=== PATIENT | female | born 1975 | race Caucasian/White ===

== ENCOUNTER 2019-08-14 22:04 | Emergency (ER) | payer MEDICARE, OTHER, SELFPAY ==
[2019-08-14 22:10] VITALS: BP 138/85; PULSE 103; RESP 20; TEMP 37.2; O2SAT 99
--- NOTE | 2019-08-14 22:18 | ED.ABDPAIN ---
HPI - Abdominal Pain General Chief Complaint: Abdominal Pain Stated Complaint: abd pain Time Seen by Provider: 08/14/19 22:16 Source: patient and RN notes reviewed Mode of arrival: ambulatory Limitations: no limitations History of Present Illness HPI narrative: A 43 y/o female presents to the ED with severe epigastric ABD pain since yesterday. She states that the pain began yesterday shortly after she ate some raw vegetables. She reports that today she began to have ABD distention, nausea, dark bilious vomit, and generalized weakness. She notes that the pain radiates into her back and is aggravated when she eats or drinks. She denies any fevers, chills, diarrhea, dysuria, urinary frequency, or urinary retention. MD elicited complaint: abdominal pain Pertinent past history: other (gastric bypass) Onset (ago): hour(s) (yesterday) Location: epigastric Severity: severe Radiation: back Exacerbating factors: eating (or drinking) Associated symptoms: nausea, vomiting (dark bilious) and other (ABD distention and generalized weakness) Related Data Allergies Allergy/AdvReac Type Severity Reaction Status Date / Time No Known Allergies Allergy Verified 08/14/19 22:13 Review of Systems Review of Systems: All systems reviewed & are unremarkable except as noted in HPI and below Constitutional: Constitutional: Denies chills, Denies fever(s) and Reports weakness (generalized) Gastrointestinal: Gastrointestinal: Reports abdominal pain (Epigastric), Denies diarrhea, Reports nausea, Reports vomiting (dark bilious) and Reports other (ABD distention) Genitourinary: Genitourinary: Denies nocturia, Denies dysuria and Denies other (urinary retention) [facility] Past Medical History Medical History Anemia Anxiety DDD (degenerative disc disease) Depression GERD (gastroesophageal reflux disease) History of kidney stones Hx of seizure disorder Surgical History Surgical History History of cholecystectomy History of dilation and curettage History of gastric bypass History of spinal surgery x4. Hx of tubal ligation Previous section x4. Family History Family History Mother Hypertension Social History Social History Smoking status: Never smoker Alcohol intake: never Gender identity (if verbalized by the patient): Female Exam Const: General: healthy appearing and no acute distress Nutritional Appearance: well nourished HENMT: Mouth: Yes lip normal and Yes moist mucous membranes Eyes: Conjunctivae: conjunctivae normal Pupils: Equal, round and reactive pupils present Resp: Effort & Inspection: normal respiratory effort Auscultation: clear to auscultation bilaterally Cardio: Rate: regular rate Rhythm: regular rhythm Heart sounds: no murmurs GI: GI Palp: Yes Soft to palpation and Yes Tenderness to palpation present (GI) (Epigastric) Auscultation: normal bowel sounds Back/Spine/Pelvis: Other: Full ROM. Skin: General skin exam: normal color, dry skin and other (warm) Neuro: General: patient oriented x3 (alert) Speech: normal speech Extrem: General: full ROM Psych: Mental Status: mental status grossly normal Affect: normal affect Course Vital Signs Vital signs: Vital Signs Temperature 37.2 C 08/14/19 22:10 Pulse Rate 103 H 08/14/19 22:10 Respiratory Rate 20 08/14/19 22:10 Blood Pressure 138/85 08/14/19 22:10 Pulse Oximetry 99 08/14/19 22:10 Temperature 36.8 C 08/15/19 01:09 Pulse Rate 89 08/15/19 01:09 Respiratory Rate 13 08/15/19 01:09 Blood Pressure 140/76 08/15/19 01:09 Pulse Oximetry 98 08/15/19 01:09 MDM - Abdominal Pain Lab Data Result diagrams: 08/14/19 22:41 08/14/19 22:41 Labs: Lab Results 08/14/19 08/14/19 08/14/19 Range/Units 22:41 22:41 23:
[2019-08-14] MEDS: SODIUM CHLORIDE 0.9% IV 1,000 ML 999 ML IV CONT (22:46)
[2019-08-14 22:47] LABS: Basophils Percent Auto 0.2 % (0.2-1.2); Hematocrit 36.5 % (37.0-47.0); Hemoglobin 10.6 g/dL (12.0-15.0); Immature Granulocyte Absolute 0.03 K/mm3 (0.00-0.031); Immature Granulocyte Percent A 0.3 % (0-0.5); Lymphocytes Absolute Auto 0.55 K/mm3 (0.9-3.2); Lymphocytes Percent Auto 5.3 % (18.3-44.2); Mean Corpuscular Hemoglobin 24.8 pg (26-34); Mean Corpuscular Volume 85.3 fl (80-100); Mean Platelet Volume 9.6 fl (7.4-10.4); Monocytes Absolute Auto 0.3 K/mm3 (0.1-0.6); Monocytes Percent Auto 2.4 % (2.6-8.5); Neutrophils Absolute Auto 9.4 K/mm3 (1.3-6.7); Neutrophils Percent Auto 91.8 % (45.5-73.1); Platelet Count Result 343 k/mm3 (150-375); Red Blood Count 4.28 M/mm3 (4.2-5.4); Red Cell Distribution Width 14.6 % (11.5-14.5); White Blood Count 10.3 K/mm3 (4.5-10.0)
[2019-08-14] MEDS: DICYCLOMINE HCL INJ 20 MG/2 ML VIAL IM (22:47)
[2019-08-14] MEDS: PANTOPRAZOLE SODIUM IV 40 MG VIAL IV PUSH (22:47)
[2019-08-14] MEDS: ONDANSETRON INJ 4 MG/2 ML VIAL IV PUSH (22:47)
[2019-08-14 22:53] LABS: Hypochromasia 1+ (NORMAL); Platelet Estimate Adequate (Adequate)
[2019-08-14 22:59] LABS: Alanine Aminotransferase 25 U/L (4-35); Albumin Level 4.8 g/dL (3.5-5.1); Alkaline Phosphatase 107 U/L (38-126); Aspartate Amino Transferase 34 U/L (14-36); Bilirubin,Total 0.4 mg/dL (0.2-1.3); Blood Urea Nitrogen 17 mg/dL (7-17); Calcium 9.2 mg/dL (8.4-10.2); Carbon Dioxide 20 mmol/L (22-30); Chloride 105 mmol/L (98-107); Estimated Glomerular Filt Rate > 60; Glucose 122 mg/dL (65-105); Lipase 113 U/L (23-300); Potassium 3.7 mmol/L (3.4-5.0); Sodium 137 mmol/L (137-145)
[2019-08-14 23:32] LABS: Add Urine Microscopic? YES; Appearance Urine Clear (Clear); Bacteria Urine Trace /hpf; Bilirubin Urine Negative (Negative); Blood Urine Negative (Negative); Color Urine Yellow (Yellow); Glucose Urine UA Negative (Negative); Ketones Urine 2+ mg/dL (Negative); Leukocyte Esterase Ur Negative LEU/UL (Negative); Mucus Urine Few /lpf; Nitrate Urine Negative (Negative); Protein Urine 1+ mg/dL (Negative); RBC Urine 0-2 /hpf (0-2); Specific Grav Ur 1.026 (1.001-1.035); Squamous Epithelial Cell Urine Many /hpf (Few); WBC Urine 0-3 /hpf
--- NOTE | 2019-08-14 23:32 | PC.NURSE ---
this rn went to check on pt, pt found sleeping in bed.
[2019-08-14 23:37] VITALS: BP 121/71; PULSE 90; RESP 16; O2SAT 99
[2019-08-14] MEDS: BELLADONNA ALK/PHENOB ELIX 10 ML, MAG HYDROX/ALUMINUM HYD/SIMETH 30 ML, LIDOCAINE HCL 2... PO (23:57)
--- NOTE | 2019-08-15 00:34 | PC.NURSE ---
pt given ice water and crackers for PO challenge per verbal md orders.
--- NOTE | 2019-08-15 00:48 | PC.NURSE ---
this rn went into room to check on pt. pt states she hasn't vomited. notified.
[2019-08-15 00:57] VITALS: BP 144/82; PULSE 89; RESP 13; O2SAT 98
[2019-08-15 01:09] VITALS: BP 140/76; PULSE 89; RESP 13; TEMP 36.8; O2SAT 98
== END 2019-08-15 01:12 | disposition home or self-care (01) ==
PROVIDERS: Emergency Provider Emergency Medicine; PCP Emergency Medicine
DX: R11.2 Nausea with vomiting, unspecified (principal); D64.9 Anemia, unspecified; Z98.84 Bariatric surgery status; K21.9 Gastro-esophageal reflux disease without esophagitis; Z87.442 Personal history of urinary calculi
CPT/HCPCS: 36415; 80053; 81001; 83690; 85025; 96361; 96365; 96372; 96375; 99284; A9270; C9113; J0131; J0500; J2405; J7030

== ENCOUNTER 2021-01-02 12:28 | Emergency (ER) | payer MEDICARE, OTHER, SELFPAY ==
--- NOTE | ~2021-01-02 | XR_ITS ---
EXAMINATION: XR chest 2V 01/02/2021 13:14 INDICATION: Shortness of breath PROCEDURE: 2 view chest COMPARISON: 04/27/2017 FINDINGS: The lungs are clear. The cardiomediastinal silhouette is within normal limits. There are no pleural effusions. There is no pneumothorax suspected. IMPRESSION: 1: NO ACUTE CARDIOPULMONARY DISEASE. Reviewed, dictated and finalized at location A.
[2021-01-02 12:39] VITALS: BP 138/74; PULSE 79; RESP 16; TEMP 36.6; O2SAT 100
--- NOTE | 2021-01-02 12:43 | ECG_ITS ---
Measurements Intervals [place] Rate: 82 P: 51 VT: 185 QRS: 46 QRSD: 89 T: 51 QT: 401 QTc: 469 Interpretive Statements SINUS RHYTHM BASELINE ARTIFACT- I, II, III NORMAL ECG Electronically Signed On 01-02-2021 13:12:20 CDT by Adebayo Melgar D.O.
[2021-01-02 13:04] LABS: Hematocrit 31.9 % (37.0-47.0); Hemoglobin 8.7 g/dL (12.0-15.0); Immature Granulocyte Absolute 0.01 K/mm3 (0.00-0.031); Immature Granulocyte Percent A 0.2 % (0-0.5); Lymphocytes Absolute Auto 1.03 K/mm3 (0.9-3.2); Lymphocytes Percent Auto 25.4 % (18.3-44.2); Mean Corpuscular HGB Conc 27.3 g/dl (32-36); Mean Corpuscular Hemoglobin 22.4 pg (26-34); Mean Corpuscular Volume 82.2 fl (80-100); Mean Platelet Volume 9.5 fl (7.4-10.4); Monocytes Absolute Auto 0.3 K/mm3 (0.1-0.6); Monocytes Percent Auto 7.1 % (2.6-8.5); Neutrophils Absolute Auto 2.7 K/mm3 (1.3-6.7); Neutrophils Percent Auto 67.3 % (45.5-73.1); Platelet Count Result 304 k/mm3 (150-375); Red Blood Count 3.88 M/mm3 (4.2-5.4); Red Cell Distribution Width 15.4 % (11.5-14.5); White Blood Count 4.1 K/mm3 (4.5-10.0)
[2021-01-02 13:29] LABS: Anion Gap 5 mmol/L (8-16); Blood Urea Nitrogen 14 mg/dL (7-17); Carbon Dioxide 26 mmol/L (22-30); Chloride 108 mmol/L (98-107); Estimated CRCL calculation 83 ml/min; Estimated Glomerular Filt Rate > 60; Glucose 95 mg/dL (65-110); Potassium 3.8 mmol/L (3.4-5.0); Sodium 139 mmol/L (137-145)
[2021-01-02 13:31] LABS: Platelet Estimate Adequate (Adequate)
[2021-01-02 13:32] LABS: Anisocytosis 1+ (NORMAL); Hypochromasia 2+ (NORMAL)
[2021-01-02 15:45] VITALS: BP 117/73; PULSE 73; PULSE 79; RESP 16; O2SAT 100
[2021-01-02] MEDS: SODIUM CHLORIDE 0.9% IV 1,000 ML 999 ML IV CONT (17:15)
[2021-01-02 18:01] LABS: Add Urine Microscopic? YES; Appearance Urine Cloudy (Clear); Bacteria Urine Trace /hpf; Bilirubin Urine Negative (Negative); Blood Urine Negative (Negative); Color Urine Yellow (Yellow); Glucose Urine UA Negative (Negative); Ketones Urine Negative (Negative); Leukocyte Esterase Ur Negative LEU/UL (Negative); Nitrate Urine Negative (Negative); Protein Urine Negative (Negative); Specific Grav Ur 1.017 (1.001-1.035); Squamous Epithelial Cell Urine Few /hpf (Few); Urobilinogen Urine Negative mg/dL (<2.0)
[2021-01-02 18:58] LABS: Thyroid Stimulating Hormone Reflex 0.956 uIU/mL (0.465-4.68)
[2021-01-02 20:01] VITALS: BP 133/84; BP 135/76; PULSE 66; PULSE 68
[2021-01-02 20:02] VITALS: BP 143/84; PULSE 84
[2021-01-02 20:16] VITALS: BP 155/89; PULSE 69; RESP 13; O2SAT 100
--- NOTE | 2021-01-02 20:19 | ED.GENADULT ---
HPI - General Adult General Chief complaint: Shortness of Breath/Dyspnea Stated complaint: Confusion/difficulty breathing Time Seen by Provider: 01/02/21 16:02 History of Present Illness HPI narrative: Patient is a 45-year-old female who presents ER with reports of brain fogginess and occasionally having difficulty finding her words. She reports this is how she gets when she becomes anemic from iron loss. Most recent episode occurring over the last month. 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 She has discontinued those treatments over the last year. She does not take any oral vitamins. Patient has difficulty with absorption due to gastric bypass surgery several years back. Patient has no focal weakness in arm or leg. She has no numbness or tingling. She has not had any syncope. No dark black stools. Related Data Home Medications Medication Instructions Recorded Confirmed citalopram mg 01/02/21 01/02/21 furosemide 01/02/21 hydrocodone-acetaminophen 01/02/21 spironolactone 01/02/21 topiramate 01/02/21 Allergies Allergy/AdvReac Type Severity Reaction Status Date / Time No Known Allergies Allergy Verified 08/14/19 22:13 Review of Systems Review of Systems: All systems reviewed & are unremarkable except as noted in HPI and below Constitutional: Constitutional: Denies chills, Reports fatigue and Denies fever(s) ENT: Denies nasal congestion and Denies sore throat Cardiovascular: Cardiovascular: Denies chest pain, Denies rapid heart rate and Denies radiating jaw, neck or arm pain Respiratory: Respiratory: Denies cough and Denies dyspnea Gastrointestinal: Gastrointestinal: Denies abdominal pain, Denies nausea and Denies vomiting Neurologic: Reports dizziness (With going from sitting to standing.), Denies headache(s), Denies focal weakness and Denies numbness PMF Past Medical History Medical History (Updated 01/02/21 @ 20:27 by Mina Damon MD) Anemia Anxiety DDD (degenerative disc disease) Depression GERD (gastroesophageal reflux disease) History of kidney stones Hx of seizure disorder Surgical History Surgical History History of cholecystectomy History of dilation and curettage History of gastric bypass History of spinal surgery x4. Hx of tubal ligation Previous section x4. Family History Family History Mother Hypertension Social History Social History Smoking status: Never smoker Alcohol intake: never Gender identity (if verbalized by the patient): Female Exam Narrative: GENERAL: Well-appearing, well-nourished, and in no acute distress. HEAD: Normocephalic, atraumatic. ENT: Mucous membranes moist. CHEST: Clear to auscultation. No respiratory distress. HEART: Regular rate and rhythm. Normal peripheral pulses. ABDOMEN: Soft, nontender, nondistended. EXTREMITIES: Normal range of motion. No edema. SKIN: Warm, dry, no rash. NEURO: No focal deficits. No upper or lower extremity drift. Sensation intact. Cranial nerves II through XII intact. Alert and oriented x3. PSYCH: Normal mood and affect. Course Course Emergency Course: Discussed results with patient. No need for transfusion. Recommend follow-up with hematology and PCP for further treatment evaluation. Patient reports she still feels like she cannot find her words though she can express everything well to me. She has become tearful. I have offered to perform CT scan of her brain for further evaluation. She has declined. Vital Signs Vital signs: Vital Signs Temperature 97.9 F 01/02/21 12:39 Pulse Rate 79 01/02/21 12:39 Respiratory Rate 16 01/02/21 12:39 Blood Pressure 138/74 01/02/21 12:39 Pulse Oximetry 100 01/02/21 12:39 Temperature 97.9 F 01/02/21 12:39 Pulse Rate 84 01/02/21 20:02 Respiratory Ra
[2021-01-02 20:31] VITALS: BP 117/71; PULSE 63; RESP 18; O2SAT 100
== END 2021-01-02 20:43 | disposition home or self-care (01) ==
PROVIDERS: Emergency Medicine; Emergency Provider Emergency Medicine; PCP Emergency Medicine
DX: D64.9 Anemia, unspecified (principal); F41.9 Anxiety disorder, unspecified; F32.9 Major depressive disorder, single episode, unspecified; K21.9 Gastro-esophageal reflux disease without esophagitis
CPT/HCPCS: 36415; 71046; 80048; 81001; 81025; 84443; 85025; 93005; 96360; 96361; 99283; J7030

== ENCOUNTER 2022-03-04 15:20 | Outpatient (CLI) | payer MEDICARE, OTHER, SELFPAY ==
--- NOTE | ~2022-03-04 | US_ITS ---
EXAMINATION: US venous doppler [facility] DATE: 03/04/2022 15:57 INDICATION: Left lower limb pain. TECHNIQUE: Grayscale ultrasound images without and with compression and Doppler ultrasound images of the left lower extremity veins were obtained. COMPARISON: None. FINDINGS: The visualized portions of left common femoral vein, profunda (deep) femoral vein, femoral vein, popl iteal vein, posterior tibial veins, and greater saphenous vein outflow are patent. There is thrombus in the left peroneal veins. IMPRESSION: 1. Deep vein thrombosis involving the left peroneal veins. I called this result to Dr. White. Reviewed, dictated and finalized at location B. IMPRESSION: 1. Deep vein thrombosis involving the left peroneal veins. I called this resul t to Dr. White.
== END 2022-03-04 15:21 | disposition home or self-care (01) ==
PROVIDERS: PCP Emergency Medicine; Visit Provider Podiatrist Foot & Ankle Surgery
DX: I82.452 Acute embolism and thrombosis of left peroneal vein (principal)
CPT/HCPCS: 93971

== ENCOUNTER 2022-07-16 10:32 | Outpatient (CLI) | payer MEDICARE, OTHER, SELFPAY ==
--- NOTE | ~2022-07-16 | US_ITS ---
EXAMINATION:US venous doppler LE LT INDICATION:History of left-sided DVT. TECHNIQUE: Multiple grayscale, color flow and Doppler images of the left lower extremity deep venous systems were obtained and reviewed. COMPARISON:Ultrasound dated 03/04/2022 FINDINGS: The common femoral, superficial femoral and popliteal veins demonstrate normal respiratory variation, augmentation and compressibility. Color flow is also seen within the posterior tibial, pe roneal, greater saphenous and profunda veins. IMPRESSION: 1: No lower extremity deep venous thrombosis. Reviewed, dictated and finalized at location L. E DELIVERY CLERK
== END 2022-07-16 10:33 | disposition home or self-care (01) ==
PROVIDERS: PCP Emergency Medicine; Visit Provider Emergency Medicine
DX: I82.402 Acute embolism and thrombosis of unspecified deep veins of left lower extremity (principal)
CPT/HCPCS: 93971

== ENCOUNTER 2022-11-14 14:52 | Outpatient (CLI) | payer OTHER, MEDICARE, SELFPAY ==
--- NOTE | ~2022-11-14 | MM_ITS ---
EXAMINATION: MM screening maria t BI w eusebia HISTORY: Screening mammogram TECHNIQUE: Craniocaudal and mediolateral oblique 3-D tomosynthesis images were obtained and synthetic 2-D images were generated. CAD analysis was submitted and interpreted. COMPARISON: No prior mammogram is available for comparison at this institution. BREAST PARENCHYMAL COMPOSITION: There are scattered areas of fibroglandular density. FINDINGS: There is a focal asymmetry in the posterior inner right breast on CC projection. Diagnostic right mammogram is recommended, with ultrasound if required. Otherwise no suspicious mass, architectural distortion, malignant calcification, skin thickening or r etraction of either breast is evident. IMPRESSION: 1. Focal posterior inner right breast asymmetry 2. Diagnostic right mammogram is recommended, with ultrasound if required BI-RADS Category 0: Incomplete: Needs additional imaging evaluation. Reviewed, dictated and finalized at location A.
== END 2022-11-14 14:53 | disposition home or self-care (01) ==
PROVIDERS: PCP Emergency Medicine; Visit Provider Emergency Medicine
DX: Z12.31 Encounter for screening mammogram for malignant neoplasm of breast (principal); R92.8 Other abnormal and inconclusive findings on diagnostic imaging of breast
CPT/HCPCS: 77063; 77067

== ENCOUNTER 2023-02-03 11:53 | Outpatient (CLI) | payer OTHER, MEDICARE, SELFPAY ==
--- NOTE | ~2023-02-03 | MMUS_ITS ---
EXAMINATION: MM diagnostic maria t RT w eusebia, US breast RT limited HISTORY: Follow-up right breast asymmetry TECHNIQUE: Additional 3-D tomosynthesis images of the right breast were performed and synthetic 2-D i mages were generated. CAD analysis was submitted and interpreted. High resolution Limited right breas t ultrasound was performed. COMPARISON: 11/14/2022 BREAST PARENCHYMAL COMPOSITION: Breast composed of scattered areas of fibroglandular density FINDINGS: MAMMOGRAPHIC FINDINGS: Focal asymmetry medially in the right breast on CC view is less apparent with spot compression CC vie w. No discrete mass or architectural distortion. No suspicious cluster of calcifications. ULTRASOUND: Limited right breast ultrasound: Mildly prominent subareolar duct of the right breast. No discrete ma ss is identified. IMPRESSION: 1. Right breast asymmetry is less apparent with spot compression views, most likely superimposed fibr oglandular content. No sonographic correlate. 2. Recommend 6 month follow-up diagnostic right mammogram BI-RADS category 3, probably benign findings. Reviewed, dictated and finalized at location A. IMPRESSION: 1. Right breast asymmetry is less apparent with spot compression views, most li faith superimposed fibroglandular content. No sonographic correlate. 2. Recommend 6 month follow-up diagnostic right mammogram BI-RADS category 3, probably benign findings.
== END 2023-02-03 11:54 | disposition home or self-care (01) ==
PROVIDERS: PCP Emergency Medicine; Visit Provider Emergency Medicine
DX: N63.10 Unspecified lump in the right breast, unspecified quadrant (principal); R92.8 Other abnormal and inconclusive findings on diagnostic imaging of breast
CPT/HCPCS: 76642; 77061; 77065; G0279

== ENCOUNTER 2023-03-27 08:15 | Outpatient (CLI) | payer OTHER, MEDICARE, SELFPAY ==
--- NOTE | ~2023-03-27 | US_ITS ---
Pelvic ultrasound. Clinical History: Abnormal uterine bleeding Technique: Realtime transabdominal and transvaginal scanning of the pelvis was performed. Color flow Doppler and Doppler spectral analysis were performed. Findings: The uterus is anteverted, and measures 10.0 x 4.8 x 6.4 cm. The endometrial stripe has a t hickness of approximately 5 mm, with minimal fluid in the endometrial cavity. No focal myometrial mas s is identified. Cervical nabothian cysts noted. The right ovary measures 2.5 3.4 x 1.7 cm. No significant right ovarian or adnexal mass is seen. The left ovary measures 3.2 x 2.7 x 3.6 cm. No significant left ovarian or adnexal mass is seen. There is no evidence of free fluid in the cul de sac. Impression: No significant abnormality seen. Reviewed, dictated and finalized at [facility]. UCT DEVELOPMENT SPECIALIST Impression: No significant abnormality seen.
== END 2023-03-27 08:16 ==
PROVIDERS: PCP Emergency Medicine; Visit Provider Obstetrics & Gynecology
DX: N93.9 Abnormal uterine and vaginal bleeding, unspecified (principal)
CPT/HCPCS: 76830; 76856

== ENCOUNTER 2023-04-14 11:20 | Outpatient (CLI) | payer OTHER, MEDICARE, SELFPAY ==
--- NOTE | ~2023-04-14 | CT_ITS ---
Non-contrast CT scan of the Abdomen and Pelvis Clinical indication: Incisional hernia Technique: 2.5 mm axial scans were obtained through the abdomen and pelvis without intravenous or or al contrast. Dose reduction technique was used on this scan by utilizing automated exposure control a nd iterative reconstruction technique. The dose-length product (DLP) was 962.17 mGy-cm. Findings: Images through the lung bases reveal no abnormalities. There is no evidence of renal or ureteral calculi. The kidneys and the ureters are nondilated. The liver, spleen, pancreas, and adrenals appear normal. Cholecystectomy clips are present. There is no aortic aneurysm. There is no evidence of bowel obstruction. There is evidence of prior bariatric surgery. Images through the pelvis were performed. There is no evidence of ascites or lymphadenopathy. Urinary bladder unremarkable. Probable 3 cm right ovarian cyst. No other adnexal mass seen. Impression: No hernia identified. 3 cm ovarian cyst. Postoperative changes, as above. Reviewed, dictated and finalized at [facility]. NG CASER Impression: No hernia identified. 3 cm ovarian cyst. Postoperative changes, as above.
== END 2023-04-14 11:21 ==
PROVIDERS: PCP Emergency Medicine; Visit Provider Surgery
DX: K43.2 Incisional hernia without obstruction or gangrene (principal); N83.209 Unspecified ovarian cyst, unspecified side
CPT/HCPCS: 74176

== ENCOUNTER 2023-04-18 12:56 | Outpatient (CLI) | payer OTHER, MEDICARE, SELFPAY ==
[2023-04-18 13:20] LABS: Hematocrit 36.9 % (37.0-47.0); Hemoglobin 11.5 g/dL (12.0-15.0); Mean Corpuscular HGB Conc 31.2 g/dl (32-36); Mean Corpuscular Hemoglobin 29.4 pg (26-34); Mean Corpuscular Volume 94.4 fl (80-100); Mean Platelet Volume 9.5 fl (7.4-10.4); Platelet Count Result 226 k/mm3 (150-375); Red Blood Count 3.91 M/mm3 (4.2-5.4); Red Cell Distribution Width 13.2 % (11.5-14.5); White Blood Count 3.3 K/mm3 (4.5-10.0)
[2023-04-18 13:34] LABS: Anion Gap 9 mmol/L (8-16); Blood Urea Nitrogen 15 mg/dL (7-17); Calcium 9.1 mg/dL (8.4-10.2); Carbon Dioxide 22 mmol/L (22-30); Chloride 107 mmol/L (98-107); Estimated Glomerular Filt Rate > 60; Glucose 109 mg/dL (65-110); Potassium 4.2 mmol/L (3.4-5.0); Sodium 138 mmol/L (137-145)
== END 2023-04-18 12:57 | disposition home or self-care (01) ==
LOC: ANHSURGERY 12:59
PROVIDERS: Anesthesiology; PCP Emergency Medicine; Visit Provider Obstetrics & Gynecology
DX: N93.9 Abnormal uterine and vaginal bleeding, unspecified (principal); Z79.899 Other long term (current) drug therapy
CPT/HCPCS: 36415; 80048; 85027

== ENCOUNTER 2023-04-24 03:58 | Day surgery (SDC) | payer MEDICARE, SELFPAY ==
--- NOTE | 2023-04-16 15:41 | PC.NURSE ---
Report to the Outpatient Waiting Room, entrance under the green pavilion located off [facility], at time on date . Planned Procedure Time: . Time changes happen often and if your time is changed the preop area will call you the afternoon before. - You and your visitor will be asked to self-screen and do not enter if you have any COVID symptoms. - A mask is optional within the hospital at this time. Patients may have clear liquids (water, carbonated beverages, clear teas, apple juice) until 3 hours prior to surgery with a maximum of 20 ounces. - No food from midnight until time of surgery - Infants may have breast milk until 4 hours before surgery, infant formula 6 hours prior to surgery. - Children will be allowed to drink immediately following surgery. If applicable, please bring a bottle or sippy cup to assist with drinking. Juice, water, soda, and popsicles are readily available. For infants on formula, please bring formula the day of surgery. Pacifiers are allowed. Take the following medications with a SIP of water the morning of surgery: DO NOT STOP ANY OF YOUR OTHER PRESCRIPTION MEDICATIONS PRIOR TO SURGERY ?EXCEPT THE FOLLOWING Medications to discontinue per physician Date to take last dose Please no make-up, nail maori, hairspray, perfume, deodorant, or body powder the day of surgery. No jewelry (including any body piercings) or valuables the day of surgery, leave them at home. Please take a shower or bath the night before, or the morning of, surgery with an antibacterial soap. Wear comfortable, loose fitting clothing. Children are encouraged to wear pajamas. - Jewelry must be removed prior to entering the operating room. Rings and piercings that are not removed may be cut off. - The hospital will not accept responsibility for valuables. - Please leave all valuables, including medications, at home the day of surgery. If you are going home after surgery, a licensed yard driver must drive you home. - NO public transportation without another adult if you receive anesthesia. - We recommend that an adult stay with you for 24 hours following discharge. - We also recommend that you do not drive, make important decision, drink alcoholic beverages, or take any drugs that were not prescribed by your health care provider for at least 24 hours after your discharge time. For Pediatric surgeries, we recommend two adults accompany the child home. Follow any additional instructions given to you from your surgeon. If you or anyone in your household have experienced Covid symptoms in the past week, please notify your surgeon or the nurse liaison at the phone number below for possible testing. Telephone instructions given to and asked if any additional questions and then verbalized understanding. Patient advised to call surgeon office or pre surgery nurse liaison [phone] if any additional questions.
[2023-04-16 16:06] VITALS: BMI 29.5
--- NOTE | 2023-04-16 16:08 | PC.NURSE ---
Report to the Outpatient Waiting Room, entrance under the green pavilion located off [facility], at time 714_ on date ____[id number]___. Planned Procedure Time: __914 . Time changes happen often and if your time is changed the preop area will call you the afternoon before. - You and your visitor will be asked to self-screen and do not enter if you have any COVID symptoms. - A mask is optional within the hospital at this time. Patients may have clear liquids (water, carbonated beverages, clear teas, apple juice) until 3 hours prior to surgery with a maximum of 20 ounces. - No food from midnight until time of surgery - Take the following medications with a SIP of water the morning of surgery: citalopram, hydrocodone (PRN), topamzx_ DO NOT STOP ANY OF YOUR OTHER PRESCRIPTION MEDICATIONS PRIOR TO SURGERY ?EXCEPT THE FOLLOWING Medications to discontinue per physician Do not take these meds day of: Lasix, Spironolactone, Pepcid Date to take last dkii____[id number] Please no make-up, nail thai, hairspray, perfume, deodorant, or body powder the day of surgery. No jewelry (including any body piercings) or valuables the day of surgery, leave them at home. Please take a shower or bath the night before, or the morning of, surgery with an antibacterial soap. Wear comfortable, loose fitting clothing. Children are encouraged to wear pajamas. - Jewelry must be removed prior to entering the operating room. Rings and piercings that are not removed may be cut off. - The hospital will not accept responsibility for valuables. - Please leave all valuables, including medications, at home the day of surgery. If you are going home after surgery, a licensed regional truck driver must drive you home. - NO public transportation without another adult if you receive anesthesia. - We recommend that an adult stay with you for 24 hours following discharge. - We also recommend that you do not drive, make important decision, drink alcoholic beverages, or take any drugs that were not prescribed by your health care provider for at least 24 hours after your discharge time. Follow any additional instructions given to you from your surgeon. If you or anyone in your household have experienced Covid symptoms in the past week, please notify your surgeon or the nurse liaison at the phone number below for possible testing. Telephone instructions given to [place] (patient)__and asked if any additional questions and then verbalized understanding. Patient advised to call surgeon office or pre surgery nurse liaison [phone] if any additional questions.
--- NOTE | 2023-04-24 07:22 | WPDHPUPDATE1 ---
History and Physical Update Update Date/Time: 04/24/23 07:22 proceed with: 1. hysteroscopy with uterine curettings 2. endometrial ablation History and Physical has been reviewed, including an updated exam of the patient. There are NO changes in the patient's condition. Risks, benefits, and alternatives have been discussed and questions answered. Patient agrees to proceed with procedure.
[2023-04-24 08:16] VITALS: BP 123/82; PULSE 83; RESP 18; TEMP 36.6; O2SAT 99
[2023-04-24] MEDS: SCOPOLAMINE 1.5 MG PATCH TRANSDERM (08:35)
[2023-04-24] MEDS: ACETAMINOPHEN 500 MG TABLET 1000 MG PO (08:35)
[2023-04-24] MEDS: LACTATED RINGERS 1,000 ML 30 ML IV CONT (08:39)
--- NOTE | 2023-04-24 08:58 | WPDANESEPPF ---
Anes - Initial Pre Proc Eval Procedure: Operation Date: 04/24/23 10:00 Proposed Procedures p Hysteroscopy Dilation and Curettage Marita Endometrial Ablation - Marc Rolon MD Date/Time: 04/24/23 08:58 Surgeon: Marc Rolon MD Pre Op Diagnosis: abnormal uterine bleeding Patient Data Age: 47 Gender: F Height: 1.75 m Weight: 97.2 kg Last Vital Signs Temp 36.6 C 04/24/23 08:16 Pulse 83 04/24/23 08:16 Resp 18 04/24/23 08:16 BP 123/82 04/24/23 08:16 Pulse Ox 99 04/24/23 08:16 O2 Del Method Room Air 04/24/23 08:16 Allergies Allergy/AdvReac Type Severity Reaction Status Date / Time No Known Allergies Allergy Verified 04/24/23 08:43 Home Medications Medication Instructions Recorded Confirmed Type citalopram 40 mg tablet 40 mg PO DAILY 01/02/21 04/24/23 History furosemide 40 mg tablet 40 mg PO BID 01/02/21 04/24/23 History hydrocodone 7.5 mg-acetaminophen 1 tablet PO TID 01/02/21 04/24/23 History 325 mg tablet spironolactone 25 mg tablet 25 mg PO DAILY 01/02/21 04/24/23 History topiramate 100 mg tablet 100 mg PO BID 01/02/21 04/24/23 History famotidine 20 mg tablet 20 mg PO BID 12/17/22 04/24/23 History Patient hx anesthesia problems: none Family hx anesthesia problems: none Results Review: All pre-operative results and documents have been reviewed as part of the pre-operative evaluation. [facility] Past Medical History Medical History Anemia Anxiety Condyloma (08/15/15) wide excision condyloma- no precancer or cancer detected DDD (degenerative disc disease) Depression Encounter for Papanicolaou smear for cervical cancer screening GERD (gastroesophageal reflux disease) History of kidney stones Hx of seizure disorder as a child Migraines Surgical History Surgical History History of cholecystectomy History of dilation and curettage History of gastric bypass History of orthopedic surgery frozen right shoulder History of spinal surgery x4. Hx of tubal ligation Previous section x4. S/P bunionectomy left toe Family History Family History Mother Hypertension Diabetes mellitus Sibling Brain cancer, Onset Age: 59 sister Son Diabetes mellitus Social History Social History Smoking status: Never smoker Second hand tobacco smoke exposure: No Alcohol intake: never Substance use: never Substance use type: does not use Lack of Transportation: No Lack of Food: Never True Current Housing: I Have Housing Concerned About Future Housing: No Difficulty Paying Gas/Electric Bills: No Difficulty Paying for Meds: No Currently Unemployed: No Education: Trade/Vocational Certificate Difficulty w/ Childcare or Family Care: No Living arrangements: with family Additional living arrangements comments: Occupation/Education: unemployed Additional occupation/education comments: disability Gender identity (if verbalized by the patient): Female Sexual Orientation (if Verbalized by the Patient): Straight or Heterosexual Spiritual care concerns: No Anes - Eval Final PreProcedure Day of Procedure 04/24/23 08:58 Patient weight: obese Heart: regular rate and rhythm Lungs: clear to auscultation Airway: Mallampati scale class II Neurological: alert and oriented Last oral intake: >/= 8 hours ASA classification: III Emergent: no Anesthetic plan: proceed Anesthesia type and monitoring: general GIVS and standard monitoring Results Review: All pre-operative results and documents have been reviewed as part of the pre-operative evaluation. Informed Consent: The patient's anesthetic plan and its attendant risks and benefits were discussed with the patient/family/POA. Questions were s
[2023-04-24] MEDS: ceFAZolin 2 GM/D5W 50 ML 2 GM/50 ML BAG IVPB (09:55)
--- NOTE | 2023-04-24 10:19 | W.PM.PROC2 ---
Procedure Note - Detailed Date of Procedure 04/24/23 Pre-op Diagnosis abnormal uterine bleeding Post-op Diagnosis Same Procedure Performed 1. Hysteroscopy with uterine curettings 2. Endometrial ablation Surgeon Marc Rolon MD Anesthesia MAC Findings Slightly thickened endometrial cavity Description of Procedure Patient prepped draped usual manner for this procedure. Cervix was dilated to allow the hysteroscope be placed, which revealed slightly thickened tissue but no polyps or fibroids. Curettings were obtained of the entire endometrial cavity. Marita instrument was then placed cavity assessment was performed and instrument was activated. At the end of the procedure hysteroscopic exam was then again performed to revealed good destruction throughout and no bleeding. At this point the procedure was considered terminated the patient was sent to recovery room in stable condition. Estimated Blood Loss 10 Drains No Packing No Pathology Yes Complications No immediate complications Condition Stable Disposition PACU [facility] Billing Surgery - Charge Forward: Surgery Billing
[2023-04-24 10:25] VITALS: BP 121/70; PULSE 59; RESP 12; O2SAT 100
[2023-04-24 10:55] VITALS: BP 136/67; PULSE 50
[2023-04-24] MEDS: oxyCODONE HCL (*CRX) 5 MG TAB IR PO (11:08)
[2023-04-24 11:25] VITALS: BP 124/70; PULSE 53
== END 2023-04-24 11:57 | disposition home or self-care (01) ==
PROVIDERS: PCP Emergency Medicine; Visit Provider Obstetrics & Gynecology
PROC: 0U5B8ZZ Destruction of Endometrium, Via Natural or Artificial Opening Endoscopic (ICD-10-PCS; CPT 58563; principal; 2023-04-24 10:00)
DX: N93.9 Abnormal uterine and vaginal bleeding, unspecified (principal); N84.0 Polyp of corpus uteri; K21.9 Gastro-esophageal reflux disease without esophagitis; F41.9 Anxiety disorder, unspecified; F32.A Depression, unspecified; Z98.84 Bariatric surgery status; E66.9 Obesity, unspecified; Z68.31 Body mass index [BMI] 31.0-31.9, adult
CPT/HCPCS: 58563; 88305; A9270; J0690; J1100; J2250; J2405; J2704; J3010; J7120

== ENCOUNTER 2023-05-08 10:45 | Outpatient (CLI) | payer OTHER, MEDICARE, SELFPAY | END 2023-05-08 10:46 | disposition home or self-care (01) | LOC: ANHSURGERY 10:48 | PROVIDERS: PCP Emergency Medicine; Visit Provider Surgery | DX: K43.2 Incisional hernia without obstruction or gangrene (principal) | CPT/HCPCS: 36415; 86850; 86900; 86901 ==

== ENCOUNTER 2023-05-15 01:03 | Day surgery (SDC) | payer OTHER, MEDICARE, SELFPAY ==
[2023-05-07 09:35] VITALS: BMI 30.2
--- NOTE | 2023-05-07 09:36 | PC.NURSE ---
Addendum entered by Linsey Pal RN 05/07/23 09:40: PLEASE TAKE CITALOPRAM AND TOPARIMATE THE MORNING OF SURGERY, MAY TAKE A PAIN PILL WELL IF NEEDED. Original Note: Report to the Outpatient Waiting Room, entrance under the green pavilion located off [facility], at time 1200_ on date 05/15/23_. Planned Procedure Time: _1400. Time changes happen often and if your time is changed the preop area will call you the afternoon before. - You and your visitor will be asked to self-screen and do not enter if you have any COVID symptoms. - A mask is optional within the hospital at this time. Patients may have clear liquids (water, carbonated beverages, clear teas, apple juice) until 3 hours prior to surgery with a maximum of 20 ounces. - No food from midnight until time of surgery - Infants may have breast milk until 4 hours before surgery, formula 6 hours prior to surgery. - Children will be allowed to drink immediately following surgery. If applicable, please bring a bottle or sippy cup to assist with drinking. Juice, water, soda, and popsicles are readily available. For infants on formula, please bring formula the day of surgery. Pacifiers are allowed. Take the following medications with a SIP of water the morning of surgery: DO NOT STOP ANY OF YOUR OTHER PRESCRIPTION MEDICATIONS PRIOR TO SURGERY ?EXCEPT THE FOLLOWING Medications to discontinue per physician Date to take last dose Please no make-up, nail algerian, hairspray, perfume, deodorant, or body powder the day of surgery. No jewelry (including any body piercings) or valuables the day of surgery, leave them at home. Please take a shower or bath the night before, or the morning of, surgery with HIBICLENS antibacterial soap. Wear comfortable, loose fitting clothing. Children are encouraged to wear pajamas. - Jewelry must be removed prior to entering the operating room. Rings and piercings that are not removed may be cut off. - The hospital will not accept responsibility for valuables. - Please leave all valuables, including medications, at home the day of surgery. If you are going home after surgery, a licensed pole truck driver must drive you home. - NO public transportation without another adult if you receive anesthesia. - We recommend that an adult stay with you for 24 hours following discharge. - We also recommend that you do not drive, make important decision, drink alcoholic beverages, or take any drugs that were not prescribed by your health care provider for at least 24 hours after your discharge time. For Pediatric surgeries, we recommend two adults accompany the child home. Follow any additional instructions given to you from your surgeon. If you or anyone in your household have experienced Covid symptoms in the past week, please notify your surgeon or the nurse liaison at the phone number below for possible testing. Telephone instructions given to _PATIENT and asked if any additional questions and then verbalized understanding. Patient advised to call surgeon office or pre surgery nurse liaison [phone] if any additional questions.
--- NOTE | 2023-05-14 14:47 | WPDANESEPPF ---
Anes - Initial Pre Proc Eval Procedure: Operation Date: 05/15/23 14:30 Proposed Procedures p Robotic Assisted Incisional Hernia Repair with Mesh - Stacy Angel MD Date/Time: 05/14/23 14:47 Surgeon: Stacy Angel MD Pre Op Diagnosis: Incisional Hernia 3.5 cm Patient Data Age: 47 Gender: F Height: 1.73 m Weight: 90 kg Allergies Allergy/AdvReac Type Severity Reaction Status Date / Time No Known Allergies Allergy Verified 05/07/23 09:26 Home Medications Medication Instructions Recorded Confirmed Type citalopram 40 mg tablet 40 mg PO DAILY 01/02/21 05/07/23 History furosemide 40 mg tablet 40 mg PO BID 01/02/21 05/07/23 History hydrocodone 7.5 mg-acetaminophen 1 tablet PO TID 01/02/21 05/07/23 History 325 mg tablet spironolactone 25 mg tablet 25 mg PO DAILY 01/02/21 05/07/23 History topiramate 100 mg tablet 100 mg PO BID 01/02/21 05/07/23 History famotidine 20 mg tablet 20 mg PO BID 12/17/22 05/07/23 History Patient hx anesthesia problems: none Family hx anesthesia problems: none Results Review: All pre-operative results and documents have been reviewed as part of the pre-operative evaluation. [facility] Past Medical History Medical History Anemia Anxiety Chronic, continuous use of opioids Condyloma (08/15/15) wide excision condyloma- no precancer or cancer detected DDD (degenerative disc disease) Depression Encounter for Papanicolaou smear for cervical cancer screening GERD (gastroesophageal reflux disease) History of kidney stones Hx of seizure disorder as a child Migraines Surgical History Surgical History History of cholecystectomy History of dilation and curettage History of gastric bypass History of hysteroscopy (04/24/23) Hysteroscopy with uterine curettings/ Endometrial ablation History of orthopedic surgery frozen right shoulder History of spinal surgery x4. Hx of tubal ligation Previous section x4. S/P bunionectomy left toe Family History Family History Mother Hypertension Diabetes mellitus Sibling Brain cancer, Onset Age: 59 sister Son Diabetes mellitus Social History Social History Smoking status: Never smoker Second hand tobacco smoke exposure: No Alcohol intake: never Substance use: never Substance use type: does not use Lack of Transportation: No Lack of Food: Never True Current Housing: I Have Housing Concerned About Future Housing: No Difficulty Paying Gas/Electric Bills: No Difficulty Paying for Meds: No Currently Unemployed: No Education: Trade/Vocational Certificate Difficulty w/ Childcare or Family Care: No Living arrangements: with family Additional living arrangements comments: Occupation/Education: unemployed Additional occupation/education comments: disability Gender identity (if verbalized by the patient): Female Sexual Orientation (if Verbalized by the Patient): Straight or Heterosexual Spiritual care concerns: No Anes - Eval Final PreProcedure Day of Procedure 05/14/23 14:47 Patient weight: obese Heart: regular rate and rhythm Lungs: clear to auscultation Airway: Mallampati scale class II Neurological: alert and oriented Last oral intake: >/= 8 hours ASA classification: III Emergent: no Anesthetic plan: proceed Anesthesia type and monitoring: general ETT and standard monitoring Results Review: All pre-operative results and documents have been reviewed as part of the pre-operative evaluation. Informed Consent: The patient's anesthetic plan and its attendant risks and benefits were discussed with the patient/family/POA. Questions were solicited and answers provided to the satisfaction of the patient/family/POA.
[2023-05-15] VITALS (8 sets, daily range): BP systolic 107–137; BP diastolic 65–80; PULSE 52–70; RESP 14–22; TEMP 36.2–36.7; O2SAT 98–100
--- NOTE | 2023-05-15 07:27 | PM.IMHP ---
H&P: HPI History of Present Illness Date/Time: 05/15/23 07:27 Chief Complaint: ventral hernia Narrative: [place] is a 47 y/o female who presents to the office at the request of Dr. Rolon for evaluation of a incisional hernia. Patient states she first noticed a bulge about 2-3 years ago. She states it is reducible. She reports LLQ pain with heavy lifting or bending. She states this pain is intermittent. She denies any issues with bowel habits. Review of Systems Review of Systems: All systems reviewed & are unremarkable except as noted in HPI and below PMFSH Past Medical History Medical History Anemia Anxiety Chronic, continuous use of opioids Condyloma (08/15/15) wide excision condyloma- no precancer or cancer detected DDD (degenerative disc disease) Depression Encounter for Papanicolaou smear for cervical cancer screening GERD (gastroesophageal reflux disease) History of kidney stones Hx of seizure disorder as a child Migraines Surgical History Surgical History History of cholecystectomy History of dilation and curettage History of gastric bypass History of hysteroscopy (04/24/23) Hysteroscopy with uterine curettings/ Endometrial ablation History of orthopedic surgery frozen right shoulder History of spinal surgery x4. Hx of tubal ligation Previous section x4. S/P bunionectomy left toe Family History Family History Mother Hypertension Diabetes mellitus Sibling Brain cancer, Onset Age: 59 sister Son Diabetes mellitus Social History Social History Smoking status: Never smoker Second hand tobacco smoke exposure: No Alcohol intake: never Substance use: never Substance use type: does not use Lack of Transportation: No Lack of Food: Never True Current Housing: I Have Housing Concerned About Future Housing: No Difficulty Paying Gas/Electric Bills: No Difficulty Paying for Meds: No Currently Unemployed: No Education: Trade/Vocational Certificate Difficulty w/ Childcare or Family Care: No Living arrangements: with family Additional living arrangements comments: Occupation/Education: unemployed Additional occupation/education comments: disability Gender identity (if verbalized by the patient): Female Sexual Orientation (if Verbalized by the Patient): Straight or Heterosexual Spiritual care concerns: No Meds Home Medications and Allergies Home Medications Medication Instructions Recorded Confirmed Type citalopram 40 mg tablet 40 mg PO DAILY 01/02/21 05/07/23 History furosemide 40 mg tablet 40 mg PO BID 01/02/21 05/07/23 History hydrocodone 7.5 mg-acetaminophen 1 tablet PO TID 01/02/21 05/07/23 History 325 mg tablet spironolactone 25 mg tablet 25 mg PO DAILY 01/02/21 05/07/23 History topiramate 100 mg tablet 100 mg PO BID 01/02/21 05/07/23 History famotidine 20 mg tablet 20 mg PO BID 12/17/22 05/07/23 History Allergies Allergy/AdvReac Type Severity Reaction Status Date / Time No Known Allergies Allergy Verified 05/07/23 09:26 Exam Const: General: cooperative, comfortable and no acute distress Resp: Auscultation: clear to auscultation bilaterally Cardio: Rate: regular rate Rhythm: regular rhythm GI: Inspection: normal to inspection and non-distended GI Palp: Yes abdominal tenderness, Yes Soft to palpation, Yes Tenderness to palpation present (GI), No Guarding due to palpation present (GI), No Rigid due to palpation and Yes Hernia present Other: lower midline hernia 3.5 cm Assessment and Plan Assessment and plan (1) Incisional hernia: Qualifiers: Obstruction and gangrene presence: without obstruction or gangrene Qualified Code(s): K43.2 - Incisional sue
[2023-05-15] MEDS: ACETAMINOPHEN 500 MG TABLET 1000 MG PO (12:50)
[2023-05-15] MEDS: LACTATED RINGERS 1,000 ML 30 ML IV CONT (12:55)
[2023-05-15] MEDS: KETOROLAC 15 MG/ML VIAL (*BKC) IV PUSH (13:00)
--- NOTE | 2023-05-15 14:05 | WPDHPUPDATE1 ---
History and Physical Update Update Date/Time: 05/15/23 14:05 History and Physical has been reviewed, including an updated exam of the patient. There are NO changes in the patient's condition. Risks, benefits, and alternatives have been discussed and questions answered. Patient agrees to proceed with procedure. will setup for robotic assisted incisional hernia repair c mesh
[2023-05-15] MEDS: ceFAZolin 2 GM/D5W 50 ML 2 GM/50 ML BAG IVPB (14:10)
[2023-05-15] MEDS: BUPIVACAINE/EPINEPHRINE 0.5% 50 ML VIAL 30 ML INFILTRATE (14:47)
--- NOTE | 2023-05-15 14:59 | W.PM.PROC2 ---
Procedure Note - Detailed Date of Procedure 05/15/23 Pre-op Diagnosis Incisional Hernia 3.5 cm Post-op Diagnosis Other ( incarcerated incisional hernia with uterus densely adhered to the anterior abdominal wall and hernia) Procedure Performed diagnostic laparoscopy Surgeon Stacy Angel MD Anesthesia General Indications 47-year-old female presenting to the office complaining of severe lower abdominal pain especially with exertion, straining. Workup significant for incisional hernia. Findings Uterus densely adhered to lower anterior abdominal wall at area of hernia Description of Procedure The patient was taken to the operating room and placed in the supine position. After adequate induction of general anesthesia, the patient was prepped and draped in the normal sterile fashion. A time-out was then done to verify the patient's identity, as well as the procedure being performed. Began by making a 5 mm incision in the right upper quadrant. A Veress needle was placed in the peritoneal cavity and CO2 gas was insufflated. After adequate pneumoperitoneum was achieved, a 5 mm Optiview trocar was placed into the peritoneal cavity under visualization. The trocar was then removed and the laparoscopic was placed through this trocar site. Upon evaluating the area of the hernia, there was noted to be dense adhesions of the uterus to the anterior abdominal wall. I was really unable to note a plane between the hernia, anterior abdominal wall, and the adhered uterus. Given these findings, the decision was made to abort the hernia repair. Multiple pictures were taken for documentation this area. At this point the abdomen was desufflated and the 5 mm trocar was removed. I then closed the trocar site with a 4-0 Monocryl subcuticular suture. Dermabond was placed on the wound. The patient tolerated the procedure well and was extubated postoperatively. She will be transferred to the recovery room in stable condition. Estimated Blood Loss 5 Complications No immediate complications Condition Stable Disposition PACU [facility] Billing Surgery - Charge Forward: Surgery Billing
[2023-05-15] MEDS: fentaNYL CITRATE INJ (*CRX) 100 MCG/2 ML VIAL 25 MCG IV PUSH ×2 (15:06→15:17)
[2023-05-15] MEDS: oxyCODONE HCL (*CRX) 5 MG TAB IR PO (16:14)
== END 2023-05-15 16:42 | disposition home or self-care (01) ==
PROVIDERS: PCP Emergency Medicine; Visit Provider Surgery
PROC: (CPT 49320; principal; 2023-05-15 14:30)
DX: K43.0 Incisional hernia with obstruction, without gangrene (principal); N73.6 Female pelvic peritoneal adhesions (postinfective)
CPT/HCPCS: 49320; A9270; J0690; J1100; J1885; J2250; J2405; J2704; J3010; J7120

== ENCOUNTER 2023-12-05 10:42 | Outpatient (CLI) | payer MEDICARE, SELFPAY ==
--- NOTE | ~2023-12-05 | MMUS_ITS ---
EXAMINATION: MM diagnostic maria t BI w eusebia, US breast RT limited HISTORY: Follow-up right breast asymmetry TECHNIQUE: Additional 3-D tomosynthesis images of the breasts were performed and synthetic 2-D images were generated. CAD analysis was submitted and interpreted. High resolution Limited right breast ult rasound was performed. COMPARISON: Comparison to multiple prior studies sequentially, with oldest reviewed study dated 11/14/2022. BREAST PARENCHYMAL COMPOSITION: Not dense: There are scattered areas of fibroglandular density. FINDINGS: MAMMOGRAPHIC FINDINGS: Focal right breast asymmetry medially in the right breast is less apparent on CC view. There are no d iscrete masses or architectural distortion. There are no suspicious cluster of calcifications in eith er breast. ULTRASOUND: Limited right breast ultrasound: Mildly prominent duct is seen at 2:00 position of the right breast. No discrete solid or cystic masses. No sonographic evidence for malignancy. IMPRESSION: 1. No evidence for malignancy in either breast. 2. . Routine yearly screening mammogram and regular clinical breast examination are recommended. BI-RADS Category 1: Negative Reviewed, dictated and finalized at location B. IMPRESSION: 1. No evidence for malignancy in either breast. 2. . Routine yearly screening mammogram and regular clinical breast examination are recommended. BI-RADS Category 1: Negative
== END 2023-12-05 10:43 | disposition home or self-care (01) ==
PROVIDERS: PCP Emergency Medicine; Visit Provider Emergency Medicine
DX: N63.10 Unspecified lump in the right breast, unspecified quadrant (principal); R92.8 Other abnormal and inconclusive findings on diagnostic imaging of breast
CPT/HCPCS: 76642; 77062; 77066; G0279

== ENCOUNTER 2024-08-15 13:38 | Emergency (ER) | payer MEDICARE, SELFPAY ==
--- OUTSIDE RECORDS SUMMARY | 2024-08-15 13:41 | XMS_ITS | Encounter Summary ---
Author Organization [facility] Address [address] [place] [address] Care Team Providers Care Steeple Jack Name Role Phone None, Provider Primary Care Provider Qiana her Encounter Details Date Type Department Care Team (Late st Contact Info) Description 06/27/2023 Therapy Plan [facility] [address] [place] [address] Cailin Spaulding MD [address] [place] [address] Social History Tobacco Use Types Packs/Day Years Used Date Smoking Tobacco: Never Smokeless Tobacco: Never Alcohol Use Standard Drinks/Week Comments Not Currently 0 (1 standard drink = 0.6 oz pur e alcohol) Comments No Sex and Gender Information Value Date Recorded Sex Assigned at Not on file Legal Sex Female 7:56 PM CDT Gender Identity Not on file Sexual Orientation Not on file documented as of this encounter Functional Status * RETIRED Are you deaf or do you have serious difficulty hearing Answer Date of Assessment Author Status No 08/15/2019 6:34 PM CDT Activ e * RETIRED Are you blind or do you have serious difficulty seeing, even when wearing glasses? Answer Date of Assessment Author Status No 08/15/2019 6:34 PM CDT Activ e * Do you have serious difficulty walking or climbing stairs? Answer Date of Assessment Author Status No 08/15/2019 6:34 PM CDT Elías Long RN Active * Do you have difficulty dressing or bathing? Answer Date of Assessment Author Status No 08/15/2019 6:34 PM FERNANDOT Elías Long RN Active * Because of a physical, mental, or emotional condition, do you have difficulty doing errands alone such as visiting a doctor's office or shopping? Answer Date of Assessment Author Status No 08/15/2019 6:34 PM Elías Sena RN Active documented as of this encounter Mental Status * Because of a physical, mental, or emotional condition, do you have serious difficulty concentrating, remembering, or making decisions? Answer Entry Date Author Status No 08/15/2019 6:34 PM Elías Sena RN Active documented in this encounter Plan of Treatment Not on file documented as of this encounter Visit Diagnoses Not on filedocumented in this encounter Care Teams Steeple Jack Relationship Specialty Start Date End Date None, Provider, PCP - General 08/15/19 documented as of this encounter
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
--- OUTSIDE RECORDS SUMMARY | 2024-08-15 13:41 | XMS_ITS | Clinical Summary ---
Author Organization [facility] Address [address] [place] [address] Care Team Providers Care Force Adjustment Supervisor Name Role Phone None, Provider MD Primary Care Provider Unavaila ble Allergies No known active allergies Medications citalopram 40 MG tablet Take 40 mg by mouth daily. Active famotidine 20 MG tablet Take 20 mg by mouth 2 (two) times daily. Active furosemide 40 MG tablet Take 40 mg by mouth 2 (two) times daily. Active hydrocodone-stephen taminophen 7.5-325 MG tablet Take 1 tablet by mouth 3 (three) times daily as needed. FOR PAIN Active spironolactone 25 MG tablet Take 25 mg by mouth daily. Active topiramate 100 MG tablet Take 100 mg by mouth 2 (two) times daily. Active zolpidem 10 MG tablet Take 10 mg by mouth nightly as needed for Sleep. Active cyanocobalamin 1000 MCG/ML injection Inject 1,000 mcg into the muscle monthly. 01/05/2021 Active Active Problems Problem Noted Date Diagnosed Date Iron deficiency anemia 06/02/2023 Hypokalemia 08/18/2019 Assessment & Plan (08/18/2019 10:24 AM CDT): Hypokalemia: Acute, unresolved. K 3.3 this am again. Likely 2/2 GI losses Replete with IV KCl 40 mEq Trend with daily BMP while inpatient Peripheral edema 08/18/2019 Assessment & Plan (08/18/2019 10:22 AM CDT): Restart home lasix 40 mg BID and spironolactone 25 mg Anxiety 08/18/2019 Assessment & Plan (08/18/2019 10:22 AM CDT): Continue citalopram 40 mg Migraines 08/18/2019 Assessment & Plan (08/18/2019 10:22 AM CDT): Restart topiramate SBO (small bowel obstruction) ([facility]) 08/15/2019 Assessment & Plan (08/18/2019 10:24 AM CDT): Small bowel obstruction: Acute, Resolving. Symptoms include abdominal pain, nausea and vomiting. Likely due to fibrous tissue/adhesions from several surgeries. Patient did well with liquids last night and this morning. Passing flatus and BM. Trial general diet today. CT A/P remarkable for severe distal small bowel obstruction with abrupt point of transition in the right lower quadrant. Repeat KUB this morning shows persistent distal small bowel obstruction Toradol IV 15 q6h prn and dilaudid 0.5 mg q4h prn Zofran 4 mg q4h orn for nausea General surgery consulted. Recommend conservation management. NG tube clamped General diet trial Restart home PO meds Discharge home this afternoon if doing well. Immunizations Name Administration Dates Next Due Afluria 36 MONTHS+ (Prefilled Syringe IIV4) 07/19 Social History Tobacco Use Types Packs/Day Years [...] Sign Reading Time Taken Comments Blood Pressure 115/76 11/23/2023 12:00 AM CDT Pulse 69 11/23/2023 12:00 AM CDT Temperature 36.4 C (97.5 F) 11/22/2023 9:41 PM CDT Respiratory Rate 15 11/23/2023 12:00 AM CDT Oxygen Saturation 99% 11/23/2023 12:00 AM CDT Inhaled Oxygen Concentration - - Weight 95.3 kg (210 lb) 11/22/2023 9:41 PM CDT Height 172.7 cm (5' 8 ) 11/22/2023 9:41 PM CDT Body Mass Index 31.93 11/22/2023 9:41 PM CDT Plan of Treatment Health Maintenance Due Date Last Done Comments Cervical Cancer Screening Pap Smear (Age 30 to 64) Every 3 Years 1977 Colorectal Cancer Screening Colonoscopy (10 Years) 1977 Annual Physical 1980 Hepatitis C 12/21/1995 Hepatitis B Vaccines (1 of 3 - 19+ 3-dose series) 1996 06/12/2001 Cervical Cancer Screening Pap with HPV Testing (Age 30 to 64) Every 5 Years 12/21/2007 Cervical Cancer Screening with HPV 12/21/2007 DTaP, Tdap and Td Vaccines (1 - Tdap) 12/22/2008 12/21/2008 Mammogram Screening 2017 COVID-19 Vaccine ( season) 2024 Influenza Adult (#1) 2024 08/17/2019, 01/28/2017, 01/25/2016, Additional history exists Pneumococcal Vaccine: Pediatrics (0 to 5 Years) and At-Risk Patients (6 to 64 Years) Aged Out 04/19/2014 No longer eligible based on patient's age to complete this topic Meningococcal B Vaccine Aged Out No l onger eligible based on patient's age to complete this topic Meningococcal Vaccine Aged Out No jagjit mary eligible based on patient's age to complete this topic RSV Immunizations Under 20 Months Aged Out No longer eligible based on patient's age to complete this topic Insurance [facility] [address] Advance Directives * Full Code (Latest Code Status on File) Date Activated Date Inactivated Comments 08/15/2019 4:40 PM 08/18/2019 6:14 PM Care Teams Force Adjustment Supervisor Relationship Specialty Start Date End Date None, Provider, PCP - General 08/15/19
--- OUTSIDE RECORDS SUMMARY | 2024-08-15 13:41 | XMS_ITS | Clinical Summary ---
Author Organization [facility] [place] [facility] [place] Address [address] [place] [address] Care Team Providers Care Dray Driver Name Role Phone Brigido Navarro MD Primary Care Provider [phone] Allergies No known active allergies Medications citalopram [...] Resolved Date Gastroesophageal reflux disease 07/14/2013 05/23/2021 Surgical History Surgery Date Site/Laterality Comments BACK SURGERY x 4 CHOLECYSTECTOMY GASTRIC BYPASS FLUORO GUIDED INJECTION SHOULDER RIGHT 11/23/2020 Ri ght SECTION x4 Medical History Medical History Date Comments Anemia Migraines GERD (gastroesophageal reflux disease) Anxiety Miscarriage s/p right shoulder arthrosco pic capsular release, cortisone injection, and manipulation under anesthesia on 02/12/2021 02/26/2021 Family History Medical History Relation Name Comments Cancer Father Arthritis Mother Diabetes Mother Relation Name Status Comments Father Mother Social History Tobacco Use Types Packs/Day Years [...] often do you attend chur ch or voodoo services? Never 03/05/2021 Do you belong to any clubs o r organizations such as adventism groups, unions, fraternal or athletic groups, or [...] on file Legal Sex Female 3:14 AM LATHE MACHINIST Gender Identity Not on file Sexual Orientation Not on file Obstetrics History Last Filed Vital Signs Vital Sign Reading Time Taken Comments Blood Pressure 137/89 05/22/2021 3:05 PM LATHE MACHINIST Pulse 74 05/22/2021 3:05 PM LATHE MACHINIST Temperature 36.2 C (97.2 F) 05/22/2021 3:05 PM LATHE MACHINIST Respiratory Rate 17 03/07/2021 3:45 PM CDT Oxygen Saturation 99% 03/07/2021 3:45 PM CDT Inhaled Oxygen Concentration - - Weight 96.1 kg (211 lb 12.8 oz) 05/22/2021 3:05 PM LATHE MACHINIST Height 175.3 cm (5' 9 ) 05/22/2021 3:05 PM LATHE MACHINIST Body Mass Index 31.28 05/22/2021 3:05 PM LATHE MACHINIST Plan of Treatment Not on file Insurance MEDICARE COMMERCIAL GENERIC MEDICARE HEALTHLINK PPO POS [facility] HUMANA CHOICE MEDICARE PPO * Guarantor: MRA Account Type Relation to Patient Date of Phone Billing Address [employer] Liability Unverified Proxy [phone] [place] [address] MRA MEDICARE HE[employer] PPO POS Advance Directives For more information, please contact: [phone] * Full Code (Latest Code Status on File) Date Activated Date Inactivated Comments 03/04/2021 6:14 PM 03/07/2021 10:01 PM Care Teams Dray Driver Relationship Specialty Start Date End Date Brigido Navarro MD PCP - General 02/15/15
--- OUTSIDE RECORDS SUMMARY | 2024-08-15 13:41 | XMS_ITS | Encounter Summary ---
Author Organization [facility] Address [address] [place] [address] Care Team Providers Care Healthcare Manager Name Role Phone None, Provider Primary Care Provider Qiana her Encounter Details Date Type Department Care Team (Late st Contact Info) Description 06/02/2023 Therapy Plan [facility] Infusion Services [address] [place] [address] Cailin Spaulding MD [address] [place] [address] Social History Tobacco Use Types [...] documented as of this encounter Visit Diagnoses Diagnosis Iron deficiency anemia- Primary Iron deficiency anemia, unspecified documented in this encounter Care Teams Healthcare Manager Relationship Specialty Start Date End Date None, Provider, PCP - General 08/15/19 documented as of this encounter
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
--- OUTSIDE RECORDS SUMMARY | 2024-08-15 13:41 | XMS_ITS | Encounter Summary ---
Author Organization [facility] Address [address] [place] [address] Care Team Providers Care Assistant Broker Name Role Phone None, Provider Primary Care Provider Qiana her Encounter Details Date Type Department Care Team (Late st Contact Info) Description 09/05/2023 Therapy Plan [facility] Infusion Services [address] [place] [address] Cailin Spaulding MD [address] [place] [address] Social History Tobacco Use Types [...] unspecified documented in this encounter Care Teams Assistant Broker Relationship Specialty Start Date End Date None, Provider, PCP - General 08/15/19 documented as of this encounter
--- OUTSIDE RECORDS SUMMARY | 2024-08-15 13:41 | XMS_ITS | Clinical Summary ---
Author Organization [facility] Address [address] [place] [address] Care Team Providers Care Vp Legal Affairs Name Role Phone Unavailable Primary Care Provider Unavailabl e Source Comments [facility] [employer],non-owned Affiliates and Associated Physician Practices is amultiple site organization consisting of ambulatory clinics and hospital sitesin [place], [place], [place] and [place]. This disclosure is being madepursuant to the Care Everywhere program and may not contain all information available regarding this patient. Last updated 18.[facility] [employer] Social History Tobacco Use Types Packs/Day Years Used Date Smoking Tobacco: Never Assessed Sex and Gender Information Value Date Recorded Sex Assigned at Not on file Gender Identity Not on file Sexual Orientation Not on file Plan of Treatment Health Maintenance Due Date Last Done Comments COLOGUARD (AGES 45-75) - COL ON CA SCREENING 1977 COLON MONITORING 1977 COLONOSCOPY - COLON CA SCREENING 1977 CT COLONOGRAPHY - COLON CA SCREENING 1977 Colorectal Cancer Screening 1977 FIT - COLON CA SCREENING 1977 FLEX SIG - COLON CA SCREENING 1977 LIPID TESTING 1977 MAMMOGRAM 1977 PAP SMEAR 1977 HIV SCREENING 1992 HEPATITIS C SCREENING 12/16/1995 DTAP/TDAP/TD VACCINES (1 - Tdap) 1996 HEPATITIS B VACCINE (1 of 3 - 19+ 3-dose series) 1996 COVID-19 VACCINE ( - 2023-2 5 season) 2024 INFLUENZA VACCINE (#1) 2024 DEPRESSION SCREENING 05/19/2024 ZOSTER VACCINE (1 of 2) 12/21/2027 HIB VACCINE Aged Out No longer eligi ble based on patient's age to complete this topic HPV VACCINE Aged Out No longer eligi ble based on patient's age to complete this topic MENINGOCOCCAL (Group B) VACC INE SHARED DECISION-MAKING Aged Out No longer eligibl e based on patient's age to complete this topic MENINGOCOCCAL GROUPS A/C/Y/W VACCINE Aged Out No longer eligible b ased on patient's age to complete this topic PNEUMOCOCCAL VACCINE Aged Out No long er eligible based on patient's age to complete this topic
--- OUTSIDE RECORDS SUMMARY | 2024-08-15 13:41 | XMS_ITS | Encounter Summary ---
Author Organization [facility] Address [address] [place] [address] Phone Care Team Providers Care Interlocking Tower Operator Name Role Phone Navarro Brigido Primary Care Provider Juan Dobbins MD Unavailable Encounter Details Date Type Department Care Team (Late st Contact Info) Description 02/18/2020 Telephone [facility] [address] [place] [address] Juan Dobbins MD [address] [address] Social History Tobacco Use Types Packs/Day Years Used Date Smoking Tobacco: Never Smokeless Tobacco: Never Alcohol Use Standard Drinks/Week Comments Not Currently 0 (1 standard drink = 0.6 oz pur e alcohol) PHQ-2 Answer Date Recorded Total Score - Questions 1-9 0 12/18 Sexually Active Control Partners Comments Not Currently Comments Unknown Sex and Gender Information Value Date Recorded Sex Assigned at Not on file Legal Sex Female 5:40 PM CDT Gender Identity Not on file Sexual Orientation Not on file documented as of this encounter Miscellaneous Notes * Telephone Encounter - Jenelle Fair - 02/18/2020 12:10 PM CDT PATIENT MISSED APPT TODAY AND I CALLED AND LEFT HER A MESSAGE TO CALL THE OFFICE TO RESCHEDULE. I ALSO MAILED A LETTER TO THE PT. documented in this encounter Plan of Treatment Not on file documented as of this encounter Visit Diagnoses Not on filedocumented in this encounter Additional Health Concerns Assessment Noted Time PHQ-9 Depression Total Score: 0 01/06/20 20 1:18 PM CDT documented as of this encounter Care Teams Interlocking Tower Operator Relationship Specialty Start Date End Date Brigido Navarro [address] [place] [address] PCP - General Family Medicine 12/23/19 Juan Dobbins MD [address] [place] [address] Consulting Physician Oncology 06/27/22 documented as of this encounter
--- OUTSIDE RECORDS SUMMARY | 2024-08-15 13:41 | XMS_ITS | CONTINUITY OF CARE DOCUMENT ---
Author Name lorenzojaclyn lorenzojaclyn Address Unknown Organization [facility] Address [address] [place] [address] Phone [phone] Care Team Providers Care Double Ending Machine Operator Name Role Phone Robyn CALDERÓN, Elio Unavailable [phone] LILIAN CALDERÓN, MADHURI Unavailable [phone] MADHURI QUINTANA MD Unavailable [phone] PROBLEMS Condition Status Date Provider Notes B12 deficiency active Elio Carlson MD Vitamin D deficiency active Elio Castanon Diabetes mellitus active Elio Carlson MD Edema completed - Elio Carlson MD Chronic anxiety active Elio Carlson MD Depression active Elio Carlson MD Migraine headaches active Elio Carlson MD Obesity active Elio Carlson MD had bypa ss GERD active Elio Carlson MD BACK PAIN;CHRONIC active Elio Carlson MD Anemia, iron deficiency active Elio casas MD Health maintenance examination active Elio Carlson MD Venous insufficiency active Elio Castanon ENCOUNTERS Date Type Provider Location Encounter Diag nosis - In-person encounter Office Visit Elio Carlson MD [place] [facility] - In-person encounter Office Visit Elio Carlson MD [facility] EdemaObesityHealth maintenance examinationVenous insufficiency - In-person encounter Office Visit Elio Carlson MD [place] [facility] Chronic anxietyDepressionMigraine headachesObesityGERDBACK PAIN;CHRONICAnemia, iron deficiency VITAL SIGNS Date Observation Value Provider Body Mass Index (Ratio) 31.93 kg/m2 Deedee ica N Surendra blood pressure, cuff size regular Je ssica N Surendra blood pressure, diastolic 70 mm[Hg] Je ssica N Surendra blood pressure, systolic 120 mm[Hg] Layla stephanie N Surnedra oxygen saturation, oximetry 99 % Emperatriz N Surendra respiratory rate E&M 18 /min Emperatriz N Surendra pulse rate 70 /min Emperatriz N Wilso n weight E&M 210 [lb_av] Emperatriz N Wilso n Body Mass Index (Ratio) 32.17 kg/m2 [facility] RN blood pressure, cuff size regular lola [facility] RN blood pressure, diastolic 80 mm[Hg] lola [facility] blood pressure, systolic 118 mm[Hg] [facility] sta [facility] RN oxygen saturation, oximetry 98 % Lamar [facility] RN respiratory rate E&M 18 /min Lamar [facility] RN pulse rate 74 /min Indu Demecs R N weight E&M 211.6 [lb_av] Lamar [facility] RN Body Mass Index (Ratio) 32.23 kg/m2 Jesenia Carlson MD blood pressure, diastolic 80 mm[Hg] Grayson Radford blood pressure, systolic 110 mm[Hg] Polina [place] oxygen saturation, oximetry 98 % Kulwinder Radford respiratory rate E&M 16 /min Kulwinder Radford pulse rate 74 /min Kulwinder jauregui weight E&M 212 [lb_av] Kulwinder jauregui height E&M 68 [in_i] Kulwinder jauregui Body Mass Index (Ratio) 31.93 kg/m2 Shas ta Demecs RN blood pressure, cuff size regular Je ssica N Surendra blood pressure, diastolic 60 mm[Hg] Je ssica N Surendra blood pressure, systolic 110 mm[Hg] Layla stephanie N Surendra oxygen saturation, oximetry 99 % Emperatriz N Surendra respiratory rate E&M 16 /min Emperatriz N Surendra pulse rate 71 /min Emperatriz N Wilso n weight E&M 210 [lb_av] Emperatriz N Wilso n Body Mass Index (Ratio) 31.38 kg/m2 [facility] ta Demecs RN blood pressure, cuff size regular lola Demecs RN blood pressure, diastolic 60 mm[Hg] lola Demecs RN blood pressure, systolic 116 mm[Hg] [facility] sta Demecs RN oxygen saturation, oximetry 98 % Lamar Demecs RN respiratory rate E&M 16 /min Indu Demecs RN pulse rate 92 /min Indu Demecs R N weight E&M 206.4 [lb_av] Indu Demecs RN Body Mass Index (Ratio) 32.08 kg/m2 Deedee ica N Surendra blood pressure, cuff size regular lola Demecs RN blood pressure, diastolic 60 mm[Hg] lola Demecs RN blood pressure, systolic 120 mm[Hg] [facility] sta Demecs RN oxygen saturation, oximetry 98 % Lamar Demecs RN respiratory rate E&M 18 /min Lamar Demecs RN pulse rate 77 /min Indu Demecs R N weight E&M 211 [lb_av] Lamar Demecs R N Body Mass Index (Ratio) 31.93 kg/m2 Deedee ica N Surendra blood pressure, cuff size regular Je ssica N Surendra blood pressure, diastolic 70 mm[Hg] Je ssica N Surendra blood pressure, systolic 130 mm[Hg] Layla Cesar Surendra oxygen saturation, oximetry 99 % Emperatriz Cesar Surendra respiratory rate E&M 18 /min Emperatriz N Surendra pulse rate 70 /min Emperatriz Mcknight n weight E&M 210 [lb_av] Emperatriz Mcknight n Body Mass Index (Ratio) 32.23 kg/m2 Jesenia Carlson MD blood pressure, resting Yes Deyanira Tanenson blood pressure, diastolic 65 mm[Hg] Tana Miranda Freeman blood pressure, systolic 125 mm[Hg] Claritza Angelo Pete oxygen saturation, oximetry 97 % Chi Freeman respiratory rate E&M 18 /min Annie Freeman pulse rate 85 /min Chi Guido nachoarben weight E&M 212 [lb_av] Chi Guido nachoarben height E&M 68 [in_i] Chi doan ALLERGIES No Known Drug Allergies RESULTS Date Observation Value Provider Reference Range Interpretation Location iron saturation percent, serum 31 % [facility] 15-55 iron, serum 79 ug/dL [facility] 27-159 iron binding capacity, unsaturated 175 ug/dL [facility] [phone]/08/ 04 iron binding capacity, total 254 ug/dL [facility] 254-485 4697/08/ 04 ferritin, serum 369 ng/mL [facility] 15-150 High basophil count, absolute 0.0 x10E3/uL [facility] 0.0-0.2 Eosinophil Absolute Count 0.2 X10E3/UL [facility] 0.0-0.4 monocyte count, blood, automated 0.4 X10E3/UL [facility] 0.1-0.9 lymphocyte count, blood, automated 1.4 X10E3/UL [facility] 0.7-3.1 Absolute Neutrophils 4.7 X10E3/UL [facility] 1.4-7.0 basophils as percent of blood leukocytes 0 % [facility] Not Estab. eosinophils as percent of blood leukocytes 2 % [facility] Not Estab. monocytes as percent of blood leukocytes 5 % [facility] Not Estab. lymphocytes as percent of blood leukocytes 21 % [facility] Not Estab. neutrophils as percent of blood leukocytes 72 % [facility] Not Estab. platelet count 234 X10E3/UL [facility] 031-359 5836/08/ 04 red blood cell distribution width 14.4 % [facility] 12.3-15.4 mean corpuscular hemoglobin concentration, RBC 33.4 G/DL [facility] 31.5-35.7 mean corpuscular hemoglobin, RBC 32.2 pg [facility] 26.6-33.0 mean corpuscular volume, RBC 96 fL [facility] 79-97 hematocrit, blood 38.9 % [facility] 34.0-46.6 hemoglobin, blood 13.0 g/dL [facility] 11.1-15.9 erythrocyte (RBC) count 4.04 X10E6/UL [facility] 3.77-5.28 leukocyte count, blood 6.7 X10E3/UL [facility] 3.4-10.8 ferritin, serum 56 ng/mL [facility] 15-150 iron saturation percent, serum 16 % [facility] 15-55 iron, serum 43 ug/dL [facility] 27-159 iron binding capacity, unsaturated 231 ug/dL [facility] 485-088 5280/05/ 23 iron binding capacity, total 274 ug/dL [facility] [phone]/05/ 23 basophil count, absolute 0.0 x10E3/uL [facility] 0.0-0.2 Eosinophil Absolute Count 0.2 X10E3/UL [facility] 0.0-0.4 monocyte count, blood, automated 0.2 X10E3/UL [facility] 0.1-0.9 lymphocyte count, blood, automated 1.3 X10E3/UL [facility] 0.7-3.1 Absolute Neutrophils 2.3 X10E3/UL [facility] 1.4-7.0 basophils as percent of blood leukocytes 1 % [facility] Not Estab. eosinophils as percent of blood leukocytes 5 % [facility] Not Estab. monocytes as percent of blood leukocytes 5 % [facility] Not Estab. lymphocytes as percent of blood leukocytes 32 % [facility] Not Estab. neutrophils as percent of blood leukocytes 57 % [facility] Not Estab. platelet count 255 X10E3/UL [facility] [phone]/05/ 23 red blood cell distribution width 12.7 % [facility] 12.3-15.4 mean corpuscular hemoglobin concentration, RBC 32.8 G/DL [facility] 31.5-35.7 mean corpuscular hemoglobin, RBC 31.4 pg [facility] 26.6-33.0 mean corpuscular volume, RBC 96 fL [facility] 79-97 hematocrit, blood 34.8 % [facility] 34.0-46.6 hemoglobin, blood 11.4 g/dL [facility] 11.1-15.9 erythrocyte (RBC) count 3.63 X10E6/UL [facility] 3.77-5.28 Low leukocyte count, blood 4.0 X10E3/UL [facility] 3.4-10.8 microalbumin/creatin ine ratio, urine 4.4 MG/G CREAT [facility] 0.0-30.0 microalbumin, random, urine 0.42 mg/dL [facility] Units converted. See lab report for original value. creatinine, random, urine 95.4 mg/dL [facility] Not Estab. ferritin, serum 151 ng/mL [facility] 15-150 High iron saturation percent, serum 27 % [facility] 15-55 iron, serum 73 ug/dL [facility] 27-159 iron binding capacity, unsaturated 197 ug/dL [facility] 174-265 8280/01/ 23 iron binding capacity, total 270 ug/dL [facility] 409-608 1403/01/ 23 hemoglobin A1C, blood, as % of total hemoglobin 5.1 % [facility] 4.8-5.6 lipoprotein, beta, serum, point, quantitative, calculated 78 mg/dL [facility] 0-99 very low density lipoproteins 21 mg/dL [facility] 5-40 HDL cholesterol, serum 52 mg/dL [facility] >39 triglyceride, serum, random 104 mg/dL [facility] 0-149 cholesterol, serum 151 mg/dL [facility] 677-657 4664/01/ 23 basophil count, absolute 0.0 x10E3/uL [facility] 0.0-0.2 Eosinophil Absolute Count 0.1 X10E3/UL [facility] 0.0-0.4 monocyte count, blood, automated 0.3 X10E3/UL [facility] 0.1-0.9 lymphocyte count, blood, automated 1.7 X10E3/UL [facility] 0.7-3.1 Absolute Neutrophils 4.0 X10E3/UL [facility] 1.4-7.0 basophils as percent of blood leukocytes 0 % [facility] Not Estab. eosinophils as percent of blood leukocytes 2 % [facility] Not Estab. monocytes as percent of blood leukocytes 5 % [facility] Not Estab. lymphocytes as percent of blood leukocytes 28 % [facility] Not Estab. neutrophils as percent of blood leukocytes 65 % [facility] Not Estab. platelet count 285 X10E3/UL [facility] 036-032 2047/01/ 23 red blood cell distribution width 12.4 % [facility] 12.3-15.4 mean corpuscular hemoglobin concentration, RBC 32.5 G/DL [facility] 31.5-35.7 mean corpuscular hemoglobin, RBC 31.7 pg [facility] 26.6-33.0 mean corpuscular volume, RBC 97 fL [facility] 79-97 hematocrit, blood 41.5 % [facility] 34.0-46.6 hemoglobin, blood 13.5 g/dL [facility] 11.1-15.9 erythrocyte (RBC) count 4.26 X10E6/UL [facility] 3.77-5.28 leukocyte count, blood 6.2 X10E3/UL [facility] 3.4-10.8 alanine aminotransferase (SGPT), serum 15 1/L [facility] 0-32 aspartate aminotransferase (SGOT), serum 13 1/L [facility] 0-40 alkaline phosphatase, serum 113 1/L [facility] 39-117 bilirubin, serum, total <0.2 mg/dL [facility] 0.0-1.2 albumin/globulin ratio, serum 1.6 [facility] 1.2-2.2 globulin, serum 2.6 [facility] 1.5-4.5 albumin, serum 4.2 g/dL [facility] 3.5-5.5 protein, total, serum 6.8 g/dL [facility] 6.0-8.5 calcium, serum 9.0 mg/dL [facility] 8.7-10.2 carbon dioxide, venous blood 22 mmol/L [facility] 18-29 chloride, serum 106 mmol/L [facility] 96-106 potassium, serum 4.0 mmol/L [facility] 3.5-5.2 sodium, serum 143 mmol/L [facility] 153-556 9825/01/ 23 urea nitrogen/creatinine ratio, serum 16 [facility] 9-23 eGFR if not 109 mL/min/{1.7 3_m2} [facility] >59 creatinine, serum 0.70 mg/dL [facility] 0.57-1.00 urea nitrogen, blood 11 mg/dL [facility] 6-20 blood glucose, random 92 mg/dL [facility] 65-99 iron binding capacity, total 302 ug/dL [facility] [phone]/11/ 06 iron, serum 112 ug/dL [facility] 25-156 ferritin, serum 273 ng/mL [facility] 13-150 High platelet count 241 THOUSAND/UL [facility] 597-394 5286/11/ 06 Absolute Basophils 0.0 CELLS/UL [facility] 0.0-0.2 Absolute Monocytes 0.3 CELLS/UL [facility] 0.2-1.0 Absolute Lymphocytes 1.28 CELLS/UL [facility] 0.85-3.90 Absolute Neutrophils 2.8 CELLS/UL [facility] 1.5-7.8 mean corpuscular volume, RBC 102 fL [facility] 75-100 High mean corpuscular hemoglobin concentration, RBC 32 G/DL [facility] 31-38 mean corpuscular hemoglobin, RBC 32 pg [facility] 25-35 hematocrit, blood 40 % [facility] 35-55 hemoglobin, blood 12.7 g/dL [facility] 11.5-16.5 erythrocyte count, whole blood 4.0 MILLION/UL [facility] 3.5-5.5 pro brain natriuretic peptide 74 pg/mL [facility] 0-450 iron binding capacity, total 389 ug/dL [facility] 384-110 3859/09/ 21 iron, serum 42 ug/dL [facility] 25-156 ferritin, serum 29 ng/mL [facility] 13-150 platelet count 256 THOUSAND/UL [facility] [phone]/09/ 21 Absolute Basophils 0.0 CELLS/UL [facility] 0.0-0.2 Absolute Monocytes 0.3 CELLS/UL [facility] 0.2-1.0 Absolute Lymphocytes 1.51 CELLS/UL [facility] 0.85-3.90 Absolute Neutrophils 3.4 CELLS/UL [facility] 1.5-7.8 mean corpuscular volume, RBC 98 fL [facility] 75-100 mean corpuscular hemoglobin concentration, RBC 32 G/DL [facility] 31-38 mean corpuscular hemoglobin, RBC 31 pg [facility] 25-35 hematocrit, blood 39 % [facility] 35-55 hemoglobin, blood 12.3 g/dL [facility] 11.5-16.5 erythrocyte count, whole blood 4.0 MILLION/UL [facility] 3.5-5.5 urea nitrogen/creatinine ratio, serum 16.3 [facility] - Estimated Glomerular Filtration Rate (calc) 85.3 (?) [facility] 59.0 - chloride, serum 104.4 mmol/L [facility] 98.0 - 107.0 potassium, serum 4.2 mmol/L [facility] 3.5 - 5.1 sodium, serum 141.0 mmol/L [facility] 136.0 - 145.0 creatinine, serum 0.8 mg/dL [facility] 0.5 - 1.0 carbon dioxide, venous blood 24.0 mmol/L [facility] 22.0 - 29.0 calcium, serum 8.7 mg/dL [facility] 8.6 - 10.2 urea nitrogen, blood 13.0 mg/dL [facility] 6.0 - 20.0 blood glucose, random 87.0 mg/dL [facility] 74.0 - 99.0 D-dimer quantitative mcg/mL 0.308 ug/mL [facility] Units converted. See lab report for original value. High folate, serum 8.2 NG/MLM [facility] 4.4 - 31.0 vitamin b12, serum 181.5 pg/mL [facility] 211.0 - 946.0 Low free thyroxine index 5.5 ??g/dL [facility] 4.4 - 11.4 triiodothyronine uptake 1.1 TBI [facility] 0.8 - 1.3 thyroxine, serum, total 6.1 ??G/DL [facility] 4.5 - 11.7 thyroid stimulating hormone, serum 0.837 ??IU/ML [facility] 0.270 - 4.200 pro brain natriuretic peptide 181.5 pg/mL [facility] 0.0 - 125.0 High ferritin, serum 5.4 ng/mL [facility] 13.0 - 150.0 Low anion gap, serum 10.7 [facility] - albumin/globulin ratio, serum 1.6 g/dL [facility] 1.1 - 2.5 globulin, serum 2.7 [facility] 2.3 - 3.8 urea nitrogen/creatinine ratio, serum 16.7 [facility] - Estimated Glomerular Filtration Rate (calc) 74.5 (?) [facility] 59.0 - chloride, serum 105.3 mmol/L [facility] 98.0 - 107.0 potassium, serum 4.0 mmol/L [facility] 3.5 - 5.1 sodium, serum 140.0 mmol/L [facility] 136.0 - 145.0 creatinine, serum 0.9 mg/dL [facility] 0.5 - 1.0 carbon dioxide, venous blood 24.0 mmol/L [facility] 22.0 - 29.0 albumin, serum 4.4 g/dL [facility] 3.5 - 5.2 calcium, serum 8.7 mg/dL [facility] 8.6 - 10.2 aspartate aminotransferase (SGOT), serum 21.0 1/L [facility] 0.0 - 32.0 alkaline phosphatase, serum 104.0 1/L [facility] 40.0 - 130.0 alanine aminotransferase (SGPT), serum 19.0 1/L [facility] 0.0 - 33.0 protein, total, serum 7.1 g/dL [facility] 6.6 - 8.7 bilirubin, serum, total 0.2 mg/dL [facility] 0.0 - 1.2 urea nitrogen, blood 15.0 mg/dL [facility] 6.0 - 20.0 blood glucose, random 98.0 mg/dL [facility] 74.0 - 99.0 red blood cell distribution width, size density 52.8 fL [facility] - immature granulocytes, percentage of total cells, blood 0.0 % [facility] - nucleated red blood cells as percent of blood leukocytes 0.0 % [facility] - red blood cell (erythrocyte) count, per high power field 0.0 10*3/UL [facility] - eosinophils as percent of blood leukocytes 1.4 % [facility] - neutrophils as percent of blood leukocytes 61.6 % [facility] - Absolute Neutrophils 2.7 CELLS/UL [facility] 1.5 - 7.8 basophils as percent of blood leukocytes 0.7 % [facility] - Absolute Basophils 0.0 [facility]S/[facility] monocytes as percent of blood leukocytes 6.5 % [facility] - Absolute Monocytes 0.3 CELLS/UL [facility] 0.[facility] - 1.0 lymphocytes as percent of blood leukocytes 29.8 % [facility] - Absolute Lymphocytes 1.3 CELLS/UL [facility] 0.9 - 3.9 mean platelet volume 11.0 (?) [facility] - platelet count 326.0 THOUSAND/UL [facility] 100.0 - 400.0 mean corpuscular hemoglobin concentration, RBC 25.7 G/DL [facility] 31.0 - 38.0 Low mean corpuscular hemoglobin, RBC 20.0 pg [facility] 25.0 - 35.0 Low mean corpuscular volume, RBC 77.9 fL [facility] 75.0 - 100.0 hematocrit, blood 25.7 % [facility] 35.0 - 55.0 Low hemoglobin, blood 6.6 g/dL [facility] 11.5 - 16.5 Critical low erythrocyte count, whole blood 3.3 MILLION/UL [facility] 3.5 - 5.5 Low iron, serum 15.0 ug/dL [facility] 25.0 - 156.0 Low iron saturation percent, serum 2.6 % [facility] 20.0 - 50.0 Low iron binding capacity, total 574.0 ug/dL [facility] 250.0 - 450.0 High Nitrite Urine Negative [facility] Negative urobilinogen, urine 0.2 E.U./dL mg/dl [facility] 0.2 - 1.0 specific gravity, urine 1.010 [facility] 1.001 - 1.035 KETONES, URINE Negative [facility] Negative bilirubin, urine Negative [facility] Negative Glucose Urine Negative [facility] Negative clarity, urine, point Clear [facility] Clear urine color Yellow [facility] yellow to maru rapid plasma reagin antibody, serum NON-REACTIV E [facility] NON-REACTIVE activated partial thromboplastin time 25.1 SECONDS [facility] 23.0 - 33.0 prothrombin time (patient) 9.9 s [facility] 9.0 - 11.5 international normalized ratio (INR) 1.0 [facility] 0.9 - 1.1 hemoglobin A1C, blood, as % of total hemoglobin 6.6 % [facility] 4.0 - 5.6 High HISTORY OF MEDICATION USE Medication Status Instructions Dates Provider Indications Com ments ADIPEX-P 37.5 MG ORAL CAPSULE active one a dya Elio Carlson MD VITAMIN D3 96211 UNIT ORAL TABLET active TAKE ONE TAB BY MOUTH WEEKLY Elio Carlson MD VITAMIN B-12 1000 MCG ORAL TABLET active One tablet daily Elio Carlson MD CYANOCOBALAMIN 1000 MCG/ML INJECTION SOLUTION completed 1mL IM weekly for 4 weeks - Emperatriz Agosto CYANOCOBALAMIN 1000 MCG/ML INJECTION SOLUTION completed 1mL IM monthly - Elio Carlson MD CYANOCOBALAMIN 1000 MCG/ML INJECTION SOLUTION completed Give 1 mL weekly for 4 weeks - Emperatriz Agosto BD ECLIPSE SYRINGE 23G X 1 3 ML completed Use 1 syringe for B12 IM injection - Elio Carlson MD TOPAMAX 100 MG ORAL TABLET active twice daily Chi Freeman SPIRONOLACTONE 25 MG ORAL TABLET active ONE TAB. DAILY ChiRafaela Freeman LASIX 40 MG ORAL TABLET active once daily ChiRafaela Freeman RANITIDINE HCL 150 MG ORAL TABLET active as needed Chi Freeman HYDROCODONE-ACETAM INOPHEN 7.5-325 MG ORAL TABLET active 3 times daily Chi Freeman CELEXA 40 MG ORAL TABLET active ONE TAB. DAILY Chi Tanenson SOCIAL HISTORY Date Observation Value Provider social history E&M Smoking Histo ry: Tavares fontanez has never smoked. Elio Carlson MD social history reviewed E&M revi ewed - no changes required Elio Carlson MD social history E&M S moking History: Tavares fontanez has never smoked. Elio Carlson MD social history reviewed E&M revi ewed - no changes required Elio Carlson MD smoking status Never smoker Chi Pedraza FAMILY HISTORY Family Member Condition Mother Family History of Hy pertension: INSURANCE PROVIDERS Payer name Policy type / Coverage type [place] [employer] [place] MEDICARE PART B Medicare [id number] [employer] PPO Other [id number] ADVANCE DIRECTIVES Name Date DISCUSSED - NO DECISION MADE TREATMENT PLAN Date Name Performer Cardiology:6.6 will reapt and tr y diet pill Elio Carlson MD Cardiology:will add adepoix Jesenia Carlson MD Cardiology Elio Carlson MD Cardiology Elio Carlson MD Cardiology:nml pro a fter corrcton of anemai n ml echo and rpr adn tsh, nml folate Elio Carlson MD Cardiology: h as had iron inufsions in past, 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, number ok now Elio Carlson MD Cardiology:had bypss, lost 165 l bs Elio Carlson MD Cardiology:will haley , has tried h ose Elio Carlson MD Cardiology:has had i barby inufsions in past, 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 Elio Carlson MD Date Name IRON AND TOTAL IRON BINDING CAPACITY FERRITIN CBC (INCLUDES DIFF/P LT) IRON AND TOTAL IRON BINDING CAPACITY FERRITIN CBC (INCLUDES DIFF/P LT) LIPID PANEL CT, Coronary Calcium Score FERRITIN CBC (INCLUDES DIFF/P LT) COMPREHENSIVE METABO LIC PANEL, W/EGFR HEMOGLOBIN A1c URINALYSIS, RANDOM, MICROALB/CREATININE IRON AND TOTAL IRON BINDING CAPACITY IRON AND TOTAL IRON BINDING CAPACITY FERRITIN CBC (INCLUDES DIFF/P LT) B TYPE NATRIURETIC P EPTIDE (BNP) IRON AND TOTAL IRON BINDING CAPACITY FERRITIN CBC (INCLUDES DIFF/P LT) BASIC METABOLIC PANE L W/EGFR Partial Thromboplast in Time, Activated PROTHROMBIN TIME WIT H INR COMPREHENSIVE METABO LIC PANEL, W/EGFR RPR (MONITOR) W/REFL TITER Venous Doppler Bilat eral LE - Reflux Complete Echo THYROID PANEL WITH T SH, 3RD GENERATION URINALYSIS, REFLEX D-DIMER, QUANTITATIV E CBC (INCLUDES DIFF/P LT) HEMOGLOBIN A1c VITAMIN D, 25-HYDROX Y, LC/MS/MS PROBNP, N TERMINAL FOLATE, SERUM VITAMIN B12 FERRITIN IRON AND TOTAL IRON BINDING CAPACITY HISTORY OF PROCEDURES Procedure Date Procedure Name Provider Procedure Notes S tatus Injectafer 750mg Elio Carlson MD co mpleted Therapeutic IV Infus ion up to 1 hour Elio Carlson MD completed Injectafer 750mg Elio Carlson MD co mpleted Therapeutic IV Infus ion up to 1 hour Elio Carlson MD completed EKG Elio Carlson MD complete d SNOMED-CT: 615984817 [id number] Current Medications Documented Elio Carlson MD completed Injectafer 750mg lEio Carlson MD co mpleted Therapeutic IV Infus ion up to 1 hour Elio Carlson MD completed Injectafer 750mg Elio Carlson MD co mpleted Therapeutic IV Infus ion up to 1 hour Elio Carlson MD completed Injectafer 750mg Elio Carlson MD co mpleted Therapeutic IV Infus ion up to 1 hour Elio Carlson MD completed IM or SQ Injection Elio Carlson MD completed B12 Injection Elio Carlson MD compl eted Injectafer 750mg Elio Carlson MD co mpleted Therapeutic IV Infus ion up to 1 hour Elio Carlson MD completed EKG Elio Carlson MD complete d SNOMED-CT: [id number] 121178 Current Medications Documented Elio Carlson MD completed
[2024-08-15 14:06] VITALS: BP 121/91; PULSE 75; RESP 15; TEMP 36.5; O2SAT 98
--- OUTSIDE RECORDS SUMMARY | 2024-08-15 14:42 | XMS_ITS | Encounter Summary ---
Author Organization [facility] Address [address] [place] [address] Phone Care Team Providers Care Bass Guitar Teacher Name Role Phone Navarro Brigido Primary Care Provider Juan Dobbins MD Unavailable [phone] Encounter Details Date Type Department Care Team (Late st Contact Info) Description 02/18/2020 Telephone [facility] [address] [place] [address] Juan Dobbins MD [address] [address] Social History Tobacco Use Types [...] documented as of this encounter Care Teams Bass Guitar Teacher Relationship Specialty Start Date End Date Brigido Navarro [address] [facility] [place] [address] PCP - General Family Medicine 12/23/19 Juan Dobbins MD [address] [place] [address] Consulting Physician Oncology 06/27/22 documented as of this encounter
--- OUTSIDE RECORDS SUMMARY | 2024-08-15 14:42 | XMS_ITS | CONTINUITY OF CARE DOCUMENT ---
Author Name lorenzojaclyn lorenzojaclyn Address Unknown Organization [facility] Address [address] [address] [facility] [address] [place] [address] Phone [phone] Care Team Providers Care Kindergarten Paraprofessional Name Role Phone Robyn CALDERÓN, Elio Unavailable [phone] LILIAN CALDERÓN, MADHURI Unavailable [phone] MADHURI QUINTANA MD Unavailable [phone] PROBLEMS Condition Status Date Provider Notes B12 [...] active Elio Carlson MD Venous insufficiency active lEio Castanon ENCOUNTERS Date Type Provider Location Encounter Diag nosis - In-person encounter Office Visit Elio Carlson MD [facility] - In-person encounter Office Visit Elio Carlson MD [facility] [place] Office EdemaObesityHealth maintenance examinationVenous insufficiency - In-person encounter Office Visit Elio Carlson MD [facility] Chronic anxietyDepressionMigraine headachesObesityGERDBACK PAIN;CHRONICAnemia, iron deficiency VITAL SIGNS Date Observation Value Provider Body Mass Index (Ratio) 31.93 kg/m2 Deedee ica N Surendra blood pressure, cuff size regular Je ssica N Surendra blood pressure, diastolic 70 mm[Hg] Je ssica N Surendra blood pressure, systolic 120 mm[Hg] Layla stephanie N Surendra oxygen saturation, oximetry 99 % Emperatriz N Surendra respiratory rate E&M 18 /min Emperatriz N Surendra pulse rate 70 /min Emperatriz N Wilso n weight E&M 210 [lb_av] Emperatriz N Wilso n Body Mass Index (Ratio) 32.17 kg/m2 [facility] RN blood pressure, cuff size regular lola [facility] RN blood pressure, diastolic 80 mm[Hg] lola [facility] RN blood pressure, systolic 118 mm[Hg] [facility] sta [facility] RN oxygen saturation, oximetry 98 % [place] [facility] RN respiratory rate E&M 18 /min [place] [facility] RN pulse rate 74 /min Indu Demecs R N weight E&M 211.6 [lb_av] [place] [facility] RN Body Mass Index (Ratio) 32.23 kg/m2 [...] n Body Mass Index (Ratio) 31.38 kg/m2 [facility] ta Demecs RN blood pressure, cuff size regular lola Demecs RN blood pressure, diastolic 60 mm[Hg] lola Demecs RN blood pressure, systolic 116 mm[Hg] [facility] sta Demecs RN oxygen saturation, oximetry 98 % [place] [facility] RN respiratory rate E&M 16 /min Indu Demecs RN pulse rate 92 /min Indu Demecs R N weight E&M 206.4 [lb_av] Indu Demecs RN Body Mass Index (Ratio) 32.08 kg/m2 Deedee ica N Surendra blood pressure, cuff size regular lola Demecs RN blood pressure, diastolic 60 mm[Hg] lola Demecs RN blood pressure, systolic 120 mm[Hg] [facility] sta Demecs RN oxygen saturation, oximetry 98 % [place] Demecs RN respiratory rate E&M 18 /min [place] Dem[facility] RN pulse rate 77 /min Indu Demecs R N weight E&M 211 [lb_av] [place] Demecs R N Body Mass Index (Ratio) [...] Emperatriz Mcknight n weight E&M 210 [lb_av] Emperatirz Mcknight n Body Mass Index (Ratio) 32.23 kg/m2 Jesenia Carlson MD blood pressure, resting Yes Deyanira Tanenson blood pressure, diastolic 65 mm[Hg] Tana Miranda Freeman blood pressure, systolic 125 mm[Hg] Claritza Angelo [employer] oxygen saturation, oximetry 97 % Chi Freeman [...] iron binding capacity, unsaturated 175 ug/dL [facility] [phone]/08/ 04 iron binding capacity, total 254 ug/dL [facility] 490-269 3619/08/ 04 ferritin, serum 369 ng/mL [facility] 15-150 [...] Not Estab. platelet count 234 X10E3/UL [facility] 520-298 2605/08/ 04 red blood cell distribution width 14.4 [...] iron binding capacity, unsaturated 231 ug/dL [facility] 383-955 7195/05/ 23 iron binding capacity, total 274 ug/dL [facility] 739-557 3872/05/ 23 basophil count, absolute 0.0 x10E3/uL [facility] [...] Not Estab. platelet count 255 X10E3/UL [facility] 360-408 7816/05/ 23 red blood cell distribution width 12.7 [...] iron binding capacity, unsaturated 197 ug/dL [facility] 115-111 5871/01/ 23 iron binding capacity, total 270 ug/dL [facility] [phone]/01/ 23 hemoglobin A1C, blood, as % of total hemoglobin 5.1 % [facility] 4.8-5.6 lipoprotein, beta, serum, point, quantitative, calculated 78 mg/dL [facility] 0-99 very low density lipoproteins 21 mg/dL [facility] 5-40 HDL cholesterol, serum 52 mg/dL [facility] >39 triglyceride, serum, random 104 mg/dL [facility] 0-149 cholesterol, serum 151 mg/dL [facility] 581-860 4166/01/ 23 basophil count, absolute 0.0 x10E3/uL [facility] [...] Not Estab. platelet count 285 X10E3/UL [facility] 417-125 0533/01/ 23 red blood cell distribution width 12.4 [...] [facility] 3.5-5.2 sodium, serum 143 mmol/L [facility] [phone]/01/ 23 urea nitrogen/creatinine ratio, serum 16 [facility] 9-23 eGFR if not 109 mL/min/{1.7 3_m2} [facility] >59 creatinine, serum 0.70 mg/dL [facility] 0.57-1.00 urea nitrogen, blood 11 mg/dL [facility] 6-20 blood glucose, random 92 mg/dL [facility] 65-99 iron binding capacity, total 302 ug/dL [facility] [phone]/11/ 06 iron, serum 112 ug/dL [facility] 25-156 ferritin, serum 273 ng/mL [facility] 13-150 High platelet count 241 THOUSAND/UL [facility] 142-645 7966/11/ 06 Absolute Basophils 0.0 CELLS/UL [facility] 0.0-0.2 [...] iron binding capacity, total 389 ug/dL [facility] 675-885 2195/09/ 21 iron, serum 42 ug/dL [facility] 25-156 ferritin, serum 29 ng/mL [facility] 13-150 platelet count 256 THOUSAND/UL [facility] 102-009 1472/09/ 21 Absolute Basophils 0.0 CELLS/UL [facility] 0.0-0.2 [...] - 33.0 protein, total, serum 7.1 g/dL [facility] 6.6 - 8.7 bilirubin, serum, total 0.2 mg/dL [facility] 0.0 - 1.2 urea nitrogen, blood 15.0 mg/dL [facility] 6.0 - 20.0 blood glucose, random 98.0 mg/dL [facility] 74.0 - 99.0 red blood cell distribution width, size density 52.8 fL [facility] - immature granulocytes, percentage of total cells, blood 0.0 % [facility] - nucleated red blood cells as percent of blood leukocytes 0.0 % [facility] - red blood cell (erythrocyte) count, per high power field 0.0 10*3/UL [facility] - eosinophils as percent of blood leukocytes 1.4 % [facility] - neutrophils as percent of blood leukocytes 61.6 % [facility] - Absolute Neutrophils 2.7 CELLS/UL [facility] 1.5 - 7.8 basophils as percent of blood leukocytes 0.7 % [facility] - Absolute Basophils 0.0 CELLS/UL [facility] 0.0 - 0.2 monocytes as percent of blood leukocytes 6.5 % [facility] - Absolute Monocytes 0.3 CELLS/UL [facility] 0.2 - 1.0 lymphocytes as percent of blood leukocytes 29.8 % [facility] - Absolute Lymphocytes 1.3 CELLS/UL [facility] 0.9 - 3.9 mean platelet volume 11.0 (?) [facility] - platelet count 326.0 THOUSAND/UL [facility] 100.0 - 400.0 mean corpuscular hemoglobin concentration, RBC 25.7 G/DL [facility] 31.0 - 38.0 Low mean corpuscular hemoglobin, RBC 20.0 pg [facility] 25.0 - 35.0 Low mean corpuscular volume, RBC 77.9 fL [facility] 75.0 - 100.0 hematocrit, blood [...] a dya Elio Carlson MD VITAMIN D3 77672 UNIT ORAL TABLET active TAKE ONE TAB [...] Payer name Policy type / Coverage type [place] party [place] PART B Medicare [id number] HE[employer] PPO Other [id number] ADVANCE DIRECTIVES Name Date DISCUSSED - NO [...] EKG Elio Carlson MD complete d SNOMED-CT: [id number] Current Medications Documented Elio Carlson MD completed Injectafer 750mg Elio [...] EKG Elio Carlson MD complete d SNOMED-CT: [id number] Current Medications Documented Elio Carlson MD completed
--- OUTSIDE RECORDS SUMMARY | 2024-08-15 14:42 | XMS_ITS | Referral Summary ---
Author Organization [facility] [place] [facility] Address [address] [place] [address] Care Team Providers Care Hydraulic Auto Jack Mechanic Name Role Phone Brigido Navarro MD Primary Care Provider [phone] Allergies No known active allergies Medications citalopram [...] often do you attend chur ch or pentecostalism services? Never 03/05/2021 Do you belong to any clubs o r organizations such as oriental orthodox groups, unions, fraternal or athletic groups, or [...] on file Legal Sex Female 3:14 AM ARCHIVIST ECONOMIC HISTORY Gender Identity Not on file Sexual Orientation Not on file Last Filed Vital Signs Vital Sign Reading Time Taken Comments Blood Pressure 137/89 05/22/2021 3:05 PM ARCHIVIST ECONOMIC HISTORY Pulse 74 05/22/2021 3:05 PM ARCHIVIST ECONOMIC HISTORY Temperature 36.2 C (97.2 F) 05/22/2021 3:05 PM ARCHIVIST ECONOMIC HISTORY Respiratory Rate 17 03/07/2021 3:45 PM CDT Oxygen Saturation 99% 03/07/2021 3:45 PM CDT Inhaled Oxygen Concentration - - Weight 96.1 kg (211 lb 12.8 oz) 05/22/2021 3:05 PM ARCHIVIST ECONOMIC HISTORY Height 175.3 cm (5' 9 ) 05/22/2021 3:05 PM ARCHIVIST ECONOMIC HISTORY Body Mass Index 31.28 05/22/2021 3:05 PM ARCHIVIST ECONOMIC HISTORY Plan of Treatment Not on file Insurance MEDICARE COMMERCIAL GENERIC MEDICARE [employer] PPO POS [facility] HUMANA CHOICE MEDICARE PPO * Guarantor: MRA Account Type Relation to Patient Date of Phone Billing Address Third Constitution Party Liability Unverified Proxy [id number] [place] [address] MRA MEDICARE [employer] PPO POS Advance Directives For more information, please contact: [phone] * Full Code (Latest Code Status on File) Date Activated Date Inactivated Comments 03/04/2021 6:14 PM 03/07/2021 10:01 PM Care Teams Hydraulic Auto Jack Mechanic Relationship Specialty Start Date End Date Brigido Navarro MD PCP - General 02/15/15
--- OUTSIDE RECORDS SUMMARY | 2024-08-15 14:42 | XMS_ITS | Encounter Summary ---
Author Organization [facility] Address [address] [place] [address] Care Team Providers Care Precision Assembler Bench Name Role Phone None, Provider Primary Care Provider Qiana her Encounter Details Date Type Department Care Team (Late st Contact Info) Description 06/27/2023 Therapy Plan [facility] Infusion Services [address] [place] [address] Cailin Spaulding MD [address] [place] [address] Social History Tobacco Use Types [...] on filedocumented in this encounter Care Teams Precision Assembler Bench Relationship Specialty Start Date End Date None, Provider, PCP - General 08/15/19 documented as of this encounter
--- OUTSIDE RECORDS SUMMARY | 2024-08-15 14:42 | XMS_ITS | Clinical Summary ---
Author Organization [facility] [place] [facility] [place] Address [address] [place] [address] Care Team Providers Care Lacer And Tier Name Role Phone Brigido Navarro MD Primary Care Provider [phone] Allergies No known active allergies Medications citalopram [...] often do you attend chur ch or zoroastrianism services? Never 03/05/2021 Do you belong to any clubs o r organizations such as sikh groups, unions, fraternal or athletic groups, or [...] on file Legal Sex Female 3:14 AM ASBESTOS WIRE FINISHER Gender Identity Not on file Sexual Orientation Not on file Obstetrics History Last Filed Vital Signs Vital Sign Reading Time Taken Comments Blood Pressure 137/89 05/22/2021 3:05 PM ASBESTOS WIRE FINISHER Pulse 74 05/22/2021 3:05 PM ASBESTOS WIRE FINISHER Temperature 36.2 C (97.2 F) 05/22/2021 3:05 PM ASBESTOS WIRE FINISHER Respiratory Rate 17 03/07/2021 3:45 PM CDT Oxygen Saturation 99% 03/07/2021 3:45 PM CDT Inhaled Oxygen Concentration - - Weight 96.1 kg (211 lb 12.8 oz) 05/22/2021 3:05 PM ASBESTOS WIRE FINISHER Height 175.3 cm (5' 9 ) 05/22/2021 3:05 PM ASBESTOS WIRE FINISHER Body Mass Index 31.28 05/22/2021 3:05 PM ASBESTOS WIRE FINISHER Plan of Treatment Not on file Insurance MEDICARE COMMERCIAL GENERIC MEDICARE [employer] PPO POS [facility] HUMANA CHOICE MEDICARE PPO * Guarantor: MRA Account Type Relation to Patient Date of Phone Billing Address Third Libertarian Liability Unverified Proxy [id number] [place] [address] MRA MEDICARE [employer] PPO POS Advance Directives For more information, please contact: [phone] * Full Code (Latest Code Status on File) Date Activated Date Inactivated Comments 03/04/2021 6:14 PM 03/07/2021 10:01 PM Care Teams Lacer And Tier Relationship Specialty Start Date End Date Brigido Navarro MD PCP - General 02/15/15
--- OUTSIDE RECORDS SUMMARY | 2024-08-15 14:42 | XMS_ITS | Clinical Summary ---
Author Organization [facility] Address [address] [place] [address] Care Team Providers Care Network Program Manager Name Role Phone None, Provider MD Primary [...] CDT): Restart topiramate SBO (small bowel obstruction) ([facility]) 08/15/2019 Assessment & Plan (08/18/2019 [...] patient's age to complete this topic Insurance [facility] [address] Advance Directives * Full Code (Latest Code Status on File) Date Activated Date Inactivated Comments 08/15/2019 4:40 PM 08/18/2019 6:14 PM Care Teams Network Program Manager Relationship Specialty Start Date End Date None, Provider, PCP - General 08/15/19
--- OUTSIDE RECORDS SUMMARY | 2024-08-15 14:42 | XMS_ITS | Encounter Summary ---
Author Organization [facility] Address [address] [place] [address] Care Team Providers Care Operating Room Registered Nurse Name Role Phone None, Provider Primary Care Provider Qiana her Encounter Details Date Type Department Care Team (Late st Contact Info) Description 06/02/2023 Therapy Plan [facility] Infusion Services [address] [place] [address] Cailin Spaulding MD [address] [place] [address] Social History Tobacco Use Types [...] unspecified documented in this encounter Care Teams Operating Room Registered Nurse Relationship Specialty Start Date End Date None, Provider, PCP - General 08/15/19 documented as of this encounter
--- OUTSIDE RECORDS SUMMARY | 2024-08-15 14:42 | XMS_ITS | Clinical Summary ---
Author Organization [facility] Address [address] [place] [address] Care Team Providers Care Mechanical Cad Designer Name Role Phone Unavailable Primary Care Provider Unavailabl e Source Comments [facility],non-owned Affiliates and Associated Physician Practices is amultiple site organization consisting of ambulatory clinics and hospital sitesin [place], [place], [place] and [place]. This disclosure is being madepursuant to the Care Everywhere program and may not contain all information available regarding this patient. Last updated 18.[facility] Social History Tobacco Use Types Packs/Day Years [...]
--- OUTSIDE RECORDS SUMMARY | 2024-08-15 14:42 | XMS_ITS | Encounter Summary ---
Author Organization [facility] Address [address] [place] [address] Care Team Providers Care Admissions Recruiter Name Role Phone None, Provider Primary Care Provider Qiana her Encounter Details Date Type Department Care Team (Late st Contact Info) Description 09/05/2023 Therapy Plan [facility] Infusion Services [address] [facility] [place] [address] Cailin Spaulding MD [address] [place] [address] Social History Tobacco Use Types [...] unspecified documented in this encounter Care Teams Admissions Recruiter Relationship Specialty Start Date End Date None, Provider, PCP - General 08/15/19 documented as of this encounter
--- OUTSIDE RECORDS SUMMARY | 2024-08-15 14:42 | XMS_ITS | Clinical Summary ---
Author Organization [facility] Address [address] [place] [address] Phone Care Team Providers Care Tin Pourer Name Role Phone Ramon Brigido Primary Care Provider Juan Dobbins MD Unavailable Allergies No known active allergies Medications citalopram [...] CDT) Glucose 107(H) 70 - 105 mg/dL [facility] Blood Urea Nitrogen 12 7 - 25 mg/dL [facility] Creatinine 0.9 0.6 - 1.2 mg/dL [facility] Sodium 141 136 - 145 mEq/L [facility] Potassium 4.1 3.5 - 5.1 mEq/L [facility] Chloride 108(H) 98 - 107 mEq/L [facility] Bicarbonate 26 21 - 31 mEq/L [facility] Total Bilirubin 0.3 0.3 - 1.0 mg/dL [facility] Alk. Phosphatase 63 34 - 104 U/L [facility] Aspartate Aminotransferase 13 13 - 39 U/L [facility] Alanine Aminotransferase 12 7 - 52 U/L [facility] Total Protein 6.2(L) 6.4 - 8.9 g/dL [facility] Albumin 4.2 3.5 - 5.7 g/dL [facility] Calcium 9.1 8.6 - 10.3 mg/dL [facility] Anion Gap 11.1 7.0 - 15.0 mEq/L [facility] Globulin 2.0 2.0 - 3.5 g/dL [facility] EGFR 80 >60 ml/min/1. 73m2 [facility] Comment: This eGFR is calculated using 2020 CKD-EPI Creatinine equation without race modifier based on the NKF-ASN task force recommendations Blood 12/11/2023 2:56 PM CDT Narrative [facility] [employer] CIVIL ENGINE[employer] [facility] - 12/11/2023 3:49 PM CDT Release to patient->Immediate IS THE PATIENT REQUIRED TO BE FASTING FOR 8 HOURS?->No us Nichelle Hernandez APRN, PROFESSOR OF POLITICAL SCIENCE CHEMISTRY ORDERABLE S Final Result [facility] CIVIL ENGINEER [facility] [place] [address], [place] [phone] from Last 3 Months or Most Recently Relevant to Health Maintenance Insurance MEDICARE C HUMANA Care Teams Tin Pourer Relationship Specialty Start Date End Date Brigido Navarro [address] [place] [address] PCP - General Family Medicine 12/23/19 Juan Dobbins MD [address] [place] [id number] Consulting Physician Oncology 06/27/22
[2024-08-15] MEDS: AMOXICILLIN/CLAVULANATE K 875-125 MG TAB 1 TABLET PO (15:02)
[2024-08-15] MEDS: KETOROLAC 30 MG/ML VIAL (*BKC) IM (15:02)
--- NOTE | 2024-08-15 15:12 | ED_ITS ---
HPI - Animal Bite General Chief Complaint: Animal Bite Stated Complaint: Cat bite, left lower leg Time Seen by Provider: 08/15/24 14:08 History of Present Illness HPI narrative: 48-year-old otherwise healthy female presenting to the emergency department for evaluation of a cat bite to her left lower extremity. Cap by was provoked and was her own house CT. CT is up-to-date on vaccinations. Patient's tetanus is up today. She endorses some redness and swelling to the calf posteriorly where she was bit as well as Chills but no fever. Was otherwise in her normal state of health, is able ambulate. Did not take anything for pain prior to arrival. No reported fevers at home. Related Data Home Medications ?Medication ?Instructions ?Recorded ?Confirmed ?Last Taken ?Type citalopram 40 mg tablet 40 mg PO DAILY 01/02/21 05/28/23 Unknown History furosemide 40 mg tablet 40 mg PO BID 01/02/21 05/28/23 Unknown History hydrocodone 7.5 mg-acetaminophen 1 tablet PO TID 01/02/21 05/28/23 Unknown History 325 mg tablet spironolactone 25 mg tablet 25 mg PO DAILY 01/02/21 05/28/23 Unknown History topiramate 100 mg tablet 100 mg PO BID 01/02/21 05/28/23 Unknown History famotidine 20 mg tablet 20 mg PO BID 12/17/22 05/28/23 Unknown History Allergies Allergy/AdvReac Type Severity Reaction Status Date / Time No Known Allergies Allergy Verified 08/15/24 13:39 Review of Systems Review of Systems: As reviewed above [facility]PI [facility] Past Medical History Medical History Chronic, continuous use of opioids Encounter for Papanicolaou smear for cervical cancer screening Migraines Condyloma (08/15/15) wide excision condyloma- no precancer or cancer detected Anemia Anxiety DDD (degenerative disc disease) Depression History of kidney stones GERD (gastroesophageal reflux disease) Hx of seizure disorder as a child Surgical History Surgical History History of hysteroscopy (04/24/23) Hysteroscopy with uterine curettings/ Endometrial ablation S/P bunionectomy left toe History of orthopedic surgery frozen right shoulder History of spinal surgery x4. Previous section x4. History of dilation and curettage Hx of tubal ligation History of gastric bypass History of cholecystectomy Family History Family History Mother Hypertension Diabetes mellitus Sibling Brain cancer, Onset Age: 59 sister Son Diabetes mellitus Social History Social History Smoking status: Never smoker Second hand tobacco smoke exposure: No Alcohol intake: never Substance use: never Substance use type: does not use Lack of Transportation: No Lack of Food: Never True Current Housing: I Have Housing Concerned About Future Housing: No Difficulty Paying Gas/Electric Bills: No Difficulty Paying for Meds: No Currently Unemployed: No Education: Trade/Vocational Certificate Difficulty w/ Childcare or Family Care: No Living arrangements: with family Additional living arrangements comments: Occupation/Education: unemployed Additional occupation/education comments: disability Gender identity (if verbalized by the patient): Female Sexual Orientation (if Verbalized by the Patient): Straight or Heterosexual Spiritual care concerns: No Exam Narrative: GENERAL: [Well-appearing, well-nourished, and in no acute distress.] HEAD: [Normocephalic, atraumatic.] EYES: [PERRLA and EOMI.] ENT: Nares clear, no rhinorrhea or epistaxis. Mucous membranes moist. NECK: Supple. CHEST: [Clear to auscultation. No respiratory distress.] HEART: [Regular rate and rhythm]. No murmur heard. [Normal peripheral pulses.] ABDOMEN: [Soft, nondistended], [nontender], [No rigidity or guarding] EXTREMITIES: posterior left calf has a puncture wound distally, surrounding erythema, no crepitus or palpable abscess. Tenderness with palpation. Full range of motion of the ankle and proximal knee joint. No difficulties ambulating in the examination room. SKIN: Warm, dry, no rash. NEURO: [No focal deficits]. Alert and oriented [x3.] PSYCH: [Normal mood and affect.] Course Vital Signs Vital signs: Vital Signs Temperature 36.5 C 08/15/24 14:06 Pulse Rate 75 08/15/24 14:06 Respiratory Rate 15 08/15/24 14:06 Blood Pressure 121/91 H 08/15/24 14:06 Pulse Oximetry 98 08/15/24 14:06 Temperature 36.5 C 08/15/24 14:06 Pulse Rate 75 08/15/24 14:06 Respiratory Rate 15 08/15/24 14:06 Blood Pressure 121/91 H 08/15/24 14:06 Pulse Oximetry 98 08/15/24 14:06 MDM - Animal Bite MDM Narrative Medical decision making narrative: 48-year-old female presenting for a cat bite to her left lower extremity. She was otherwise in her normal state of health, it was her house cat that bit her during a provoked incident. Cat is up-to-date on vaccinations. She has a puncture wound to the left lower extremity distal calf, surrounding erythematous changes consistent with cellulitis. No crepitus or abscess formation. No fever, she does state she has subjective chills but otherwise normal vital signs. Examination is reassuring, able to ambulate without any restricted range of motion. No significant spreading or streaking from the puncture wound and surrounding cellulitis. patient has an up-to-date tetanus vaccine according to her and can be safely treated with anti-inflammatory measures and Augmentin. She is given a dose here in the emergency department as well as Toradol and safe for discharge home at this time. Patient given prescriptions. Medical Records Attestation: I reviewed the patient's medical records. Discharge Plan Discharge Clinical Impression: Cat bite of left lower leg Patient Disposition: Home, Self-Care Condition: Stable Instructions: Antibiotic Form, Animal Bite (ED) Additional Instructions: We will treat with antibiotics and anti-inflammatory measures. if you have any worsening pain, extension of the infection with greater spread of the redness, warmth, tenderness, difficulty walking, fevers not going away with Tylenol and ibuprofen, any other concerns return to the ER otherwise follow-up with regular doctor as needed. Patient Language: Welsh Prescriptions: New acetaminophen [Tylenol Extra Strength] 500 mg tablet 1,000 mg PO TID PRN (Reason: pain) Qty: 30 0RF ketorolac 10 mg tablet 10 mg PO Q8H PRN (Reason: pain) 5 Days Qty: 20 0RF Rx Instructions: maximum total duration of 5 days from all oral, intranasal, or parenteral formulations amoxicillin-pot clavulanate 875-125 mg tablet 1 tablet PO Q12H 7 Days Qty: 14 0RF No Action furosemide 40 mg tablet 40 mg PO BID citalopram 40 mg tablet 40 mg PO DAILY spironolactone 25 mg tablet 25 mg PO DAILY hydrocodone-acetaminophen 7.5-325 mg tablet 1 tablet PO TID topiramate 100 mg tablet 100 mg PO BID famotidine 20 mg tablet 20 mg PO BID Follow-up/Referrals: Brigido Navarro MD [Primary Care Provider] - Time of Disposition: 15:16
== END 2024-08-15 15:20 | disposition home or self-care (01) ==
PROVIDERS: Emergency Provider Student in an Organized Health Care Education/Training Program; PCP Emergency Medicine
DX: S81.852A Open bite, left lower leg, initial encounter (principal); K21.9 Gastro-esophageal reflux disease without esophagitis; F41.9 Anxiety disorder, unspecified; F32.A Depression, unspecified; Z98.84 Bariatric surgery status; Z86.2 Personal history of diseases of the blood and blood-forming organs and certain disorders involving the immune mechanism; Z87.442 Personal history of urinary calculi; Z90.49 Acquired absence of other specified parts of digestive tract; W55.01XA Bitten by cat, initial encounter
CPT/HCPCS: 99283; A9270; J1885